=== PATIENT | female | born 1975 | race Caucasian/White ===

== ENCOUNTER → 2017-07-21 15:51 | Outpatient (CLI) | payer BC, SELFPAY ==
--- NOTE | 2017-07-21 | FLU_PTH ---
PATIENT: JAYNE DOCKERY LOC: [facility] U#:[id number] AGE/SX: 49/F ROOM: RE07/21/[address]: Dr. Kvng Bui MD : 1975 BED: DIS: SPEC #: [id number] RECD: 07/22/17 13:06 STATUS: ASHLYN DAVID #: [id number] SHERLEY: 07/21/17 00:[address]: Kvng Bui DEPT: CYTOLOGY RECD BY: Gibson Flower ENTERED: 07/22/17 13:07 SP TYPE: Fluid OTHR DR: Dr. Kerrie Castellon, DO Tissues: A - Thyroid gland, NOS B - Thyroid gland, NOS Procedures: Pap Stain (control) Special Stain Group II Surgery Specimen Level IV Cell Block Cytospin Fluid HEADER OPERATION: Ultrasound-guided fine needle aspiration left thyroid PRE-OP DIAGNOSIS: Multinodular goiter TISSUE SUBMITTED: A ? Left thyroid nodule fluid for cytology (syringe), B ? Fine needle aspiration left thyroid (8 slides) DIAGNOSIS CYTOLOGY A. Left thyroid nodule fluid for cytology (cytospin and cell block): Negative for malignant cells. Consistent with cyst contents. B. Left thyroid nodule, FNA (smears): Consistent with benign cystic follicular nodule. See cytology study and comment. AM:rasheed 07/25/17 COMMENT Correlation with clinical, radiologic findings and appropriate follow up are necessary. CYTOLOGY STUDY Slides are reviewed. A. The specimen entirely consists of macrophages. B. The specimen is adequate for evaluation. The specimen consists of numerous macrophages and benign follicular cells. Significant amount of colloid is not seen. CYTOLOGY GROSS A - Received is 0.5 ml of red, cloudy fluid labeled with the patient's name and and designated per the requisition as left thyroid. Submitted for cytology preparation including cell block. B - Received are eight smears labeled with the patient's name and designated per the requisition as left thyroid. Submitted for staining. / 07/22/17 TC:5 CPT: 60216, 79881, 48688
== END ==
PROVIDERS: Family Provider Internal Medicine; PCP Internal Medicine; Visit Provider Surgery
DX: E04.2 Nontoxic multinodular goiter (principal)
CPT/HCPCS: 88108; 88305; 88313

== ENCOUNTER → 2018-05-12 13:16 | Outpatient (CLI) | payer BC, SELFPAY ==
--- NOTE | 2018-05-12 13:30 | US_ITS ---
STUDY: THYROID ULTRASOUND REASON FOR EXAM: Female, 42 years old. Nodule follow-up, previous biopsy in October 2017 TECHNIQUE: Ultrasound evaluation of the thyroid was performed with real-time and static ortega-scale imaging. COMPARISON: 05/02/2017 FINDINGS: RIGHT LOBE: The right lobe of the thyroid gland measures 4.7 x 2.2 x 1.7 cm. There is a homogeneous echotexture. 3 hypoechoic nodules of the right thyroid lobe with the largest measuring up to 9 mm, stable when directly compared to the prior study. No new or enlarging thyroid nodule. LEFT LOBE: The left lobe of the thyroid gland measures 4.6 x 1.6 x 1.4 cm. There is a homogeneous echotexture. Solitary nodule of the left thyroid lobe has decreased in size since the prior study with maximum diameter measuring up to 1.1 cm (previously measured up to 1.6 cm). ISTHMUS: The isthmus measures 4 mm. The regional lymph nodes are normal. US/Thyroid IMPRESSION: Stable right thyroid nodules. Decreased size of left thyroid lobe nodule. No new or enlarging thyroid nodule. Electronically Signed: Rj Chris MD at 10:21 EST , Service support ,
== END ==
PROVIDERS: Family Provider Internal Medicine; PCP Internal Medicine; Referring Provider Internal Medicine; Visit Provider Internal Medicine
DX: E04.1 Nontoxic single thyroid nodule (principal)
CPT/HCPCS: 76536

== ENCOUNTER → 2018-06-15 17:30 | Outpatient (CLI) | payer BC, SELFPAY ==
[2017-07-05 10:10] VITALS: BMI 41.5
--- NOTE | 2018-06-15 17:07 | BI_ITS ---
MAMMOGRAPHY - BILATERAL SCREENING REASON FOR EXAM: Female, 42 years old. Routine annual screening examination. PERTINENT HISTORY: Aunt with breast cancer. TECHNIQUE: Digital bilateral breast kwesi (3D mammographic acquisition) in the CC and MLO projections. 2-D mediolateral oblique (MLO) and craniocaudad (CC) views of both breasts were obtained. CAD: Full Field Digital Mammography with Computer Added Detection was performed. COMPARISON: Comparison is made with prior study dated May 02, 2017. FINDINGS: Breast Composition: The breasts are almost entirely fatty. There are no dominant masses or suspicious calcifications. Stable appearance of the small bilateral axillary lymph nodes. No other significant abnormalities are identified. There has been no significant change since the prior study. BI/SCREENING MAMM (CAD), BILAT IMPRESSION: Stable bilateral screening mammogram. Yearly follow-up mammogram recommended. (A) ASSESSMENT CATEGORY: BIRADS Category 2: Benign. A letter regarding these results will be sent to the patient by the facility within 30 days. Approximately 10% of breast cancers are not detected by mammography. A normal mammogram should not delay biopsy of a clinically suspicious abnormality. [id number] Electronically Signed: Ken Santa, at 8:43 EST , Service support ,
== END ==
PROVIDERS: Family Provider Internal Medicine; PCP Internal Medicine; Referring Provider Internal Medicine; Visit Provider Internal Medicine
DX: Z12.31 Encounter for screening mammogram for malignant neoplasm of breast (principal); Z80.3 Family history of malignant neoplasm of breast
CPT/HCPCS: 77063; 77067

== ENCOUNTER → 2018-06-23 09:10 | Outpatient (CLI) | payer BC, SELFPAY ==
--- NOTE | 2018-06-23 09:18 | RAD_ITS ---
STUDY: AIR-CONTRAST ESOPHAGRAM STUDY REASON FOR EXAM: Female, 42 years old. Vomiting FLUOROSCOPY TIME (if supplied): (0:24) minutes/seconds, 10 images. TECHNIQUE: Multiple barium swallows were performed under fluoroscopic monitoring. Multiple views of the esophagus, the upper stomach were performed. COMPARISON: None. FINDINGS: The esophagus appears normal in size and shape it shows unremarkable mucosal pattern. There is no evidence of hiatal hernia or abnormal vascular compression. RAD/Esophagus Only IMPRESSION: Unremarkable study. Electronically Signed: Mona Griffin, at 9:55 EDT Tel , Service support ,
== END ==
PROVIDERS: Family Provider Internal Medicine; PCP Internal Medicine; Referring Provider Internal Medicine; Visit Provider Internal Medicine
DX: K21.9 Gastro-esophageal reflux disease without esophagitis (principal)
CPT/HCPCS: 74220

== ENCOUNTER → 2018-07-06 14:46 | Outpatient (CLI) | payer BC, SELFPAY ==
[2018-07-11 13:06] LABS: HPV Reflexed? NOT INDICATED
== END ==
PROVIDERS: Family Provider Internal Medicine; PCP Internal Medicine; Visit Provider Obstetrics & Gynecology
DX: Z12.4 Encounter for screening for malignant neoplasm of cervix (principal)
CPT/HCPCS: 87624; 88175; G0145

== ENCOUNTER → 2018-07-17 08:00 | Outpatient (CLI) | payer BC, SELFPAY ==
--- NOTE | 2018-07-17 08:06 | CT_ITS ---
HISTORY: EPIGASTRIC PAIN/PRESSURE X6 [id number] X2,LAPROSCOPY EXAMINATION: CT Abdomen W/ Contrast TECHNIQUE: Helically acquired images were obtained of the abdomen following IV contrast. A radiation dose optimization technique was used for this scan. IV Contrast dosage and agent: 100CC Isovue 300 Oral contrast: None. COMPARISON: None FINDINGS: LOWER CHEST: Incidental mild linear atelectasis right middle lobe. No cardiomegaly or pericardial effusion observed. LIVER: Homogeneous. No focal mass. GALLBLADDER AND BILIARY TREE: No calcified gallstones. Gallbladder mildly distended. No adjacent edema. No intra- or extrahepatic biliary ductal dilation. KIDNEYS AND URETERS: Normal renal size and position. There is no hydronephrosis. ADRENAL GLANDS: Non-enlarged. SPLEEN: Normal size without focal cystic or solid mass. PANCREAS: No focal cystic or solid mass. BOWEL: No stomach or bowel distension. No focal inflammatory change observed. LYMPH NODES: No enlarged mesenteric or retroperitoneal lymph nodes. PERITONEUM: No ascites or free air. No other fluid collection. VESSELS: Aorta is non-dilated. ABDOMINAL WALL: No discrete abdominal or pelvic wall hernia observed. BONES: No lytic or blastic abnormality observed. Facet degeneration lower lumbar spine. CT/Abdomen WITH IV Contrast IMPRESSION: Negative CT abdomen with IV contrast. Individualized dose optimization techniques were used for this CT. at 0407 Reported and signed by: Bertin Schultz MD Electronically Signed: Bertin Schultz, at 4:00 EDT Tel , Service support ,
== END ==
PROVIDERS: Family Provider Internal Medicine; PCP Internal Medicine; Referring Provider Internal Medicine; Visit Provider Internal Medicine
DX: R10.13 Epigastric pain (principal)
CPT/HCPCS: 74160; Q9967

== ENCOUNTER 2019-02-19 08:57 | Emergency (ER) | payer BC, SELFPAY ==
[2019-02-19 08:58] VITALS: BP 143/97; PULSE 130; RESP 18; TEMP 38.6; O2SAT 98; BMI 39.0
--- NOTE | 2019-02-19 09:17 | ED.VISSUMM ---
- ER Visit Summary Date of Service: 02/19/19 Chief Complaint: Cough, cold-like symptoms History of Present Illness: The patient is a 43 F who has had a cough and cold-like symptoms. She states that last night around 10 PM she started getting worse. She felt like she had a temperature. She has nasal congestion. Her cough is nonproductive. She took nothing for this at home. She did get a flu shot this year. No sick contacts. Physical Examination: Vital signs are reviewed. HEENT exam reveals mild sinus congestion. No posterior oropharyngeal erythema. Neck is supple. Heart is tachycardic and regular rhythm. Lungs are clear to auscultation bilaterally. Abdomen soft nontender. Extremities are nontender. Skin exam reveals no rashes. Neurologic exam normal. Test Results: Influenza negative. Chest x-ray has a right lower lobe infiltrate Emergency Department Course and Treatment: Patient was given an offer her fever. X-ray reveals no pneumonia. Influenza testing negative. Patient will be treated with antibiotics. She will continue NSAIDs at home. Treatment Plan: [] Disposition: Discharge Impression: Community-acquired pneumonia This note was generated with [employer] dictation software. It may contain incorrect words, spelling, and punctuation that were not noted in review of the chart prior to signing ED Disposition - Plan for ED Patient: Referrals: Kerrie Castellon DO [Primary Care Provider] -
[2019-02-19] MEDS: Acetaminophen 500 MG Tablet 1000 MG PO (09:21)
--- NOTE | 2019-02-19 09:53 | RAD_ITS ---
STUDY: X-RAY CHEST REASON FOR EXAM: Female, 43 years old. Cough and chest pain. TECHNIQUE: PA and lateral views of the chest. COMPARISON: None. FINDINGS: Focal consolidation in the anterior segment of the right lower lobe. There is no demonstrated pleural abnormality. Normal size heart. Normal mediastinum and opal. Normal visualized pulmonary arteries. Normal visualized aortic arch and descending thoracic aorta. There are degenerative changes of the visualized thoracic spine. Normal visualized ribs, clavicles, and shoulders. There is no demonstrated abnormality of the visualized soft tissue structures of the upper abdomen. RAD/Chest PA and Lateral IMPRESSION: Focal consolidation in the anterior segment of the right lower lobe. Electronically Signed: Ken Santa, at 10:48 EST , Service support ,
--- NOTE | 2019-02-19 10:56 | ED.DEP ---
ED Disposition - Plan for ED Patient: Disposition: Home or Assisted Living Instructions: PNEUMONIA (Adult) Prescriptions: Doxycycline 100 mg PO BID #20 cap Prescription Printed Referrals: Kerire Castellon DO [Primary Care Provider] -
[2019-02-19 11:00] VITALS: BP 125/74; PULSE 62; RESP 15; O2SAT 98
== END 2019-02-19 11:02 | disposition home or self-care (01) ==
PROVIDERS: Emergency Provider Emergency Medicine; Family Provider Internal Medicine; PCP Internal Medicine
DX: J18.9 Pneumonia, unspecified organism (principal); I10 Essential (primary) hypertension; Z79.899 Other long term (current) drug therapy
CPT/HCPCS: 71046; 87804; 99283

== ENCOUNTER → 2019-04-09 09:32 | Outpatient (CLI) | payer BC, SELFPAY ==
--- NOTE | 2019-04-09 09:37 | RAD_ITS ---
HISTORY: FOLLOW UP TO PREV PNEUMONIA ADDITIONAL HISTORY: None provided. COMPARISON: 02/19/2019 TECHNIQUE: Frontal and lateral chest radiographs. Number of images including paperwork: 2 FINDINGS: LUNGS AND PLEURA: No consolidation, mass or pleural effusion. Consolidation in the right lower lobe has resolved. CARDIAC SILHOUETTE: Unremarkable. MEDIASTINUM AND SAVANNA: Unremarkable. UPPER ABDOMEN: Unremarkable. SKELETON AND SOFT TISSUES: No acute findings. OTHER DEVICES AND HARDWARE: None. RAD/Chest PA and Lateral IMPRESSION: No acute cardiopulmonary abnormality. Resolution of right lower lobe pneumonia. at 0004 Reported and signed by: Hannah Frazier MD Electronically Signed: Hannah Frazier MD at 0:04 EST Tel , Service support ,
== END ==
PROVIDERS: Family Provider Internal Medicine; PCP Internal Medicine; Referring Provider Internal Medicine; Visit Provider Internal Medicine
DX: J18.9 Pneumonia, unspecified organism (principal)
CPT/HCPCS: 71046

== ENCOUNTER → 2019-05-10 09:16 | Outpatient (CLI) | payer BC, SELFPAY ==
[2019-05-10 10:01] LABS: Absolute Lymphocyte Count 2.14 X10^3/uL (0.83-4.51); Absolute Neutrophil Count 2.5 X10^3/uL (2.0-7.7); Basophil# 0.05 X10^3/uL; Eosinophil# 0.13 X10^3/uL; Eosinophils% 2.5 % (0-5); Hemoglobin 13.8 g/dL (12.0-15.0); Lymphocyte # 2.14 X10^3/ul (4.0); Lymphocyte % 41.5 % (19-41); Mean Corp Hgb Conc 32.1 g/dL (32-36); Mean Corpuscular Hgb 27.4 pg (27.0-32.0); Mean Corpuscular Volume 85.5 fL (81-99); Mean Platelet Vol. 8.7 fl (6.2-12.0); Monocyte# 0.35 X10^3/uL; Monocyte% 6.8 % (0-10); NRBC Flagged by Analyzer 0 % (0-5); Neutrophil # 2.48 X10^3/uL (2.7-7.7); Platelet Count 394 K/mm3 (150-450); RBC Distribution Width SD 40.3 fl (35.1-43.9); Red Blood Count 5.03 M/mm3 (4.2-5.4); White Blood Count 5.2 K/mm3 (4.4-11.0)
[2019-05-10 10:21] LABS: Hemoglobin A1c 5.9 % (4.2-6.3)
[2019-05-10 10:29] LABS: Microalbumin,Random Urine 23.2 mg/L (NO RANGE EST.); Microalbumin:Creatinine Ratio 7.7 mg/g CRE (<30 mg/g CRE)
[2019-05-10 10:44] LABS: ALB/GLOB Ratio 1.1 RATIO (0.9-2.4); AST(SGOT) 18 U/L (15-37); Alanine Aminotransfer ALT/SGPT 27 U/L (13-56); Albumin, Serum 3.9 g/dL (3.2-5.0); Alkaline Phosphatase 76 U/L (45-117); Anion Gap 3 (5-15); BUN 13 mg/dL (7-18); BUN/Creat Ratio 14.8 RATIO (10-20); Calcium,Total 8.7 mg/dL (8.5-10.1); Chloride 106 mmol/L (98-107); Cholesterol 199 mg/dL (200); Creatinine, Serum 0.88 mg/dL (0.55-1.02); EST Glomerular Filtration Rate 75 mL/min (>60); Est Glom Filt Rate - Afr Amer 90 mL/min (>60); Globulin 3.5 g/dL (2.2-4.2); Glucose 93 mg/dL (74-106); High Density Lipoprotein 47 mg/dL; Protein, Total 7.4 g/dL (6.4-8.2); Sodium Level 138 mmol/L (136-145); Triglycerides 155 mg/dL; Very Low Density Lipoprotein 31 mg/dL (5-40)
[2019-05-10 11:25] LABS: Vitamin D,25 Hydroxy 37.6 ng/mL (29.95-100.01)
== END ==
PROVIDERS: PCP Internal Medicine; Referring Provider Internal Medicine; Visit Provider Internal Medicine
DX: I15.0 Renovascular hypertension (principal); R73.01 Impaired fasting glucose; E55.9 Vitamin D deficiency, unspecified
CPT/HCPCS: 36415; 80053; 80061; 82043; 82306; 82570; 83036; 85025

== ENCOUNTER → 2019-06-15 20:04 | Outpatient (CLI) | payer BC, SELFPAY ==
[2019-05-18 08:03] VITALS: BMI 34.9
== END ==
LOC: SL 20:04
PROVIDERS: PCP Internal Medicine; Referring Provider Internal Medicine; Visit Provider Internal Medicine
DX: G47.10 Hypersomnia, unspecified (principal)
CPT/HCPCS: 95810

== ENCOUNTER → 2019-06-21 08:46 | Outpatient (CLI) | payer BC, SELFPAY ==
[2019-05-18 08:03] VITALS: BMI 34.9
--- NOTE | 2019-06-21 08:47 | BI_ITS ---
MAMMOGRAPHY - BILATERAL SCREENING REASON FOR EXAM: Female, 43 years old. Routine annual screening examination. PERTINENT HISTORY: Aunt with breast cancer. TECHNIQUE: Digital bilateral breast jose g (3D mammographic acquisition) in the CC and MLO projections. 2-D mediolateral oblique (MLO) and craniocaudad (CC) views of both breasts were obtained. CAD: Full Field Digital Mammography with Computer Added Detection was performed. COMPARISON: Comparison is made with prior examination June 15, 2018 and May 02, 2017. FINDINGS: Breast Composition: The breasts are almost entirely fatty. There are no dominant masses or suspicious calcifications. No other significant abnormalities are identified. There has been no significant change since the prior study. BI/SCREEN MAMM (CAD) W/JOSE G BILAT IMPRESSION: Stable bilateral screening mammogram. Yearly follow-up mammogram recommended. (A) ASSESSMENT CATEGORY: BIRADS Category 1: Negative. A letter regarding these results will be sent to the patient by the facility within 30 days. Approximately 10% of breast cancers are not detected by mammography. A normal mammogram should not delay biopsy of a clinically suspicious abnormality. [id number] Electronically Signed: Ken Santa, at 9:56 EDT , Service support ,
== END ==
PROVIDERS: PCP Internal Medicine; Referring Provider Internal Medicine; Visit Provider Internal Medicine
DX: Z12.31 Encounter for screening mammogram for malignant neoplasm of breast (principal)
CPT/HCPCS: 77063; 77067

== ENCOUNTER → 2020-07-18 14:22 | Outpatient (CLI) | payer OTHER, SELFPAY ==
[2020-07-18 13:43] VITALS: BMI 39.4
[2020-07-18 15:15] LABS: Absolute Lymphocyte Count 2.68 X10^3/uL (0.83-4.51); Basophil# 0.05 X10^3/uL; Basophil% 0.7 % (0-1); Eosinophil# 0.16 X10^3/uL; Eosinophils% 2.1 % (0-5); Hematocrit 40.8 % (37-47); Hemoglobin 13.4 g/dL (12.0-15.0); Lymphocyte # 2.68 X10^3/ul (4.0); Lymphocyte % 35.7 % (19-41); Mean Corp Hgb Conc 32.8 g/dL (32-36); Mean Corpuscular Hgb 28.2 pg (27.0-32.0); Mean Corpuscular Volume 85.7 fL (81-99); Mean Platelet Vol. 8.6 fl (6.2-12.0); Monocyte# 0.58 X10^3/uL; Monocyte% 7.7 % (0-10); NRBC Flagged by Analyzer 0 % (0-5); Neutrophil # 4.02 X10^3/uL (2.7-7.7); Neutrophil % 53.5 % (47-70); Platelet Count 400 K/mm3 (150-450); RBC Distribution Width SD 40.1 fl (35.1-43.9); Red Blood Count 4.76 M/mm3 (4.2-5.4); White Blood Count 7.5 K/mm3 (4.4-11.0)
[2020-07-18 16:09] LABS: Hemoglobin A1c 5.2 % (3.8-5.6)
[2020-07-18 16:19] LABS: ALB/GLOB Ratio 1.1 RATIO (0.9-2.4); AST(SGOT) 26 U/L (15-37); Alanine Aminotransfer ALT/SGPT 29 U/L (13-56); Albumin, Serum 3.9 g/dL (3.2-5.0); Alkaline Phosphatase 94 U/L (45-117); Anion Gap 6 (5-15); BUN 13 mg/dL (7-18); BUN/Creat Ratio 14.5 RATIO (10-20); Calcium,Total 9.3 mg/dL (8.5-10.1); Chloride 103 mmol/L (98-107); Cholesterol 223 mg/dL (200); EST Glomerular Filtration Rate 73 mL/min (>60); Est Glom Filt Rate - Afr Amer 88 mL/min (>60); Globulin 3.7 g/dL (2.2-4.2); Glucose 93 mg/dL (74-106); High Density Lipoprotein 51 mg/dL; Potassium 3.9 mmol/L (3.5-5.1); Protein, Total 7.6 g/dL (6.4-8.2); Sodium Level 136 mmol/L (136-145); Triglycerides 197 mg/dL; Very Low Density Lipoprotein 39 mg/dL (5-40)
== END ==
PROVIDERS: PCP Internal Medicine; Referring Provider Internal Medicine; Visit Provider Internal Medicine
DX: I10 Essential (primary) hypertension (principal); R73.03 Prediabetes
CPT/HCPCS: 36415; 80053; 80061; 83036; 85025

== ENCOUNTER → 2020-09-04 10:03 | Outpatient (CLI) | payer OTHER, SELFPAY ==
[2020-07-18 13:43] VITALS: BMI 39.4
--- NOTE | 2020-09-04 10:05 | BI_ITS ---
MAMMOGRAPHY - BILATERAL SCREENING REASON FOR EXAM: Female, 44 years old. Routine annual screening examination. PERTINENT HISTORY: Aunt with breast cancer. TECHNIQUE: Digital bilateral breast jose g (3D mammographic acquisition) in the CC and MLO projections. 2-D mediolateral oblique (MLO) and craniocaudad (CC) views of both breasts were obtained. CAD: Full Field Digital Mammography with Computer Added Detection was performed. COMPARISON: Comparison is made with prior study dated 06/21/2019 and 06/15/2018. FINDINGS: Breast Composition: The breasts are almost entirely fatty. There are no dominant masses or suspicious calcifications. Stable small benign appearing bilateral axillary lymph nodes. No other significant abnormalities are identified. There has been no significant change since the prior study. BI/SCRN MAMM (CAD)W/JOSE G BILAT IMPRESSION: Stable bilateral screening mammogram. Yearly follow-up mammogram recommended. (A) ASSESSMENT CATEGORY: BIRADS Category 2: Benign. A letter regarding these results will be sent to the patient by the facility within 30 days. Approximately 10% of breast cancers are not detected by mammography. A normal mammogram should not delay biopsy of a clinically suspicious abnormality. [id number] Electronically Signed: Ken Santa MD at 11:15 EDT , Service support ,
== END ==
PROVIDERS: PCP Internal Medicine; Referring Provider Internal Medicine; Visit Provider Internal Medicine
DX: Z12.31 Encounter for screening mammogram for malignant neoplasm of breast (principal)
CPT/HCPCS: 77063; 77067

== ENCOUNTER → 2020-09-16 | Outpatient (CLI) | payer OTHER, SELFPAY ==
[2020-09-16 09:29] VITALS: BMI 39.4
[2020-09-16 10:54] LABS: Mucous, Urine 0 SEEN /hpf (<or=2+); Red Blood Cells-Urine 0 SEEN /hpf (0-5); White Blood Cells 0 SEEN /hpf (0-5)
[2020-09-16 11:54] LABS: Color, Urine Straw (Yellow); Glucose, Dipstick Normal (Normal); Ketone-Dipstick Negative (Negative); Leukocyte Esterase-Dipstick Negative /ul (Negative); Nitrite-Dipstick Negative (Negative); Occult Blood-Urine Negative /ul (Negative); Protein-Dipstick Negative (Negative); Specific Gravity, Urine 1.005 (1.002-1.030); Urine Bilirubin Dipstick Negative (Negative); Urine Clarity Sl. Cloudy (Clear); Urine Urobilinogen Normal (Normal)
[2020-09-16 12:03] LABS: Bacteria 1+ /hpf (None Seen); Squamous Epithelial Cells - UA 0-5 SEEN /hpf (5-10)
== END | disposition home or self-care (01) ==
LOC: LABSPEC 10:35
PROVIDERS: PCP Internal Medicine; Referring Provider Internal Medicine; Visit Provider Internal Medicine
DX: N39.0 Urinary tract infection, site not specified (principal); R82.90 Unspecified abnormal findings in urine; R10.2 Pelvic and perineal pain
CPT/HCPCS: 81001; 87086; 87088

== ENCOUNTER → 2021-01-16 09:42 | Outpatient (CLI) | payer OTHER, SELFPAY ==
[2021-01-16 12:36] LABS: Hemoglobin A1c 5.4 % (3.8-5.6)
[2021-01-16 12:54] LABS: Anion Gap 7 (5-15); BUN 11 mg/dL (7-18); BUN/Creat Ratio 12.3 RATIO (10-20); Calcium,Total 9.1 mg/dL (8.5-10.1); Chloride 103 mmol/L (98-107); Creatinine, Serum 0.89 mg/dL (0.55-1.02); EST Glomerular Filtration Rate 73 mL/min (>60); Est Glom Filt Rate - Afr Amer 88 mL/min (>60); Glucose 103 mg/dL (74-106); Potassium 4.2 mmol/L (3.5-5.1); Sodium Level 136 mmol/L (136-145)
== END ==
PROVIDERS: PCP Internal Medicine; Referring Provider Internal Medicine; Visit Provider Internal Medicine
DX: I10 Essential (primary) hypertension (principal); R73.03 Prediabetes
CPT/HCPCS: 36415; 80048; 83036

== ENCOUNTER → 2021-03-27 08:28 | Outpatient (CLI) | payer OTHER, SELFPAY ==
[2021-03-27 12:15] LABS: Absolute Lymphocyte Count 1.98 X10^3/uL (0.83-4.51); Absolute Neutrophil Count 3.5 X10^3/uL (2.0-7.7); Basophil# 0.06 X10^3/uL; Eosinophils% 3.2 % (0-5); Hematocrit 42.6 % (37-47); Hemoglobin 13.9 g/dL (12.0-15.0); Lymphocyte # 1.98 X10^3/ul (0.83-4.51); Lymphocyte % 31.7 % (19-41); Mean Corp Hgb Conc 32.6 g/dL (32-36); Mean Corpuscular Hgb 27.9 pg (27.0-32.0); Mean Corpuscular Volume 85.4 fL (81-99); Mean Platelet Vol. 8.6 fl (6.2-12.0); Monocyte# 0.44 X10^3/uL; Monocyte% 7.1 % (0-10); NRBC Flagged by Analyzer 0 % (0-5); Neutrophil # 3.54 X10^3/uL (2.7-7.7); Neutrophil % 56.7 % (47-70); Platelet Count 425 K/mm3 (150-450); RBC Distribution Width CV 12.9 % (11.6-14.6); Red Blood Count 4.99 M/mm3 (4.2-5.4); White Blood Count 6.2 K/mm3 (4.4-11.0)
[2021-03-27 13:00] LABS: ALB/GLOB Ratio 0.9 RATIO (0.9-2.4); AST(SGOT) 20 U/L (15-37); Alanine Aminotransfer ALT/SGPT 30 U/L (13-56); Albumin, Serum 3.7 g/dL (3.2-5.0); Alkaline Phosphatase 96 U/L (45-117); Anion Gap 8 (5-15); BUN 13 mg/dL (7-18); BUN/Creat Ratio 16.1 RATIO (10-20); Calcium,Total 9.2 mg/dL (8.5-10.1); Chloride 105 mmol/L (98-107); Creatinine, Serum 0.81 mg/dL (0.55-1.02); EST Glomerular Filtration Rate 82 mL/min (>60); Est Glom Filt Rate - Afr Amer 99 mL/min (>60); Globulin 3.9 g/dL (2.2-4.2); Glucose 109 mg/dL (74-106); Potassium 3.9 mmol/L (3.5-5.1); Protein, Total 7.6 g/dL (6.4-8.2); Sodium Level 138 mmol/L (136-145); T4 Free Direct 0.91 ng/dL (0.76-1.46); Thyroid Stim Hormone (TSH) 1.83 uIU/mL (0.358-3.74)
== END ==
PROVIDERS: PCP Internal Medicine; Visit Provider Internal Medicine
DX: K58.9 Irritable bowel syndrome, unspecified (principal)
CPT/HCPCS: 36415; 80053; 84439; 84443; 85025

== ENCOUNTER → 2021-03-27 12:20 | Outpatient (CLI) | payer OTHER, SELFPAY ==
--- NOTE | 2021-03-27 12:22 | EKG12_ITS ---
Test Reason : ROUTINE Blood Pressure : / mmHG Vent. Rate : 067 BPM Atrial Rate : 067 BPM P-R Int : 170 ms QRS Dur : 086 ms QT Int : 384 ms P-R-T Axes : 044 022 040 degrees QTc Int : 405 ms Normal sinus rhythm Normal ECG Confirmed by KENNETH POLK, RAQUEL ([id number]), online content editor AMERICA RICARDO ([id number]) on 03/30/2021 9:48:59 AM Referred By: Leonard Chanel Confirmed By:RAQUEL COOPER MD
== END ==
PROVIDERS: PCP Internal Medicine; Referring Provider Internal Medicine; Visit Provider Internal Medicine
DX: I10 Essential (primary) hypertension (principal); Z82.49 Family history of ischemic heart disease and other diseases of the circulatory system
CPT/HCPCS: 93005

== ENCOUNTER → 2021-04-08 | Outpatient (CLI) | payer OTHER, SELFPAY | END | disposition home or self-care (01) | LOC: LABSPEC 11:39 | PROVIDERS: PCP Internal Medicine; Referring Provider Physician Assistant; Visit Provider Physician Assistant | DX: U07.1 COVID-19 (principal) | CPT/HCPCS: 87635; U0005; U0003 ==

== ENCOUNTER 2021-04-10 14:47 | Outpatient (CLI) | payer OTHER, SELFPAY ==
[2021-04-10 14:59] VITALS: BMI 87.0
[2021-04-10 15:05] VITALS: BP 132/92; PULSE 79; RESP 16; TEMP 36.8; O2SAT 98; BMI 39.4
[2021-04-10] MEDS: 0.9% Saline Lock 10 ML Syringe IV (15:08)
[2021-04-10 15:31] VITALS: BP 133/92; PULSE 75; RESP 16; TEMP 37; O2SAT 98
[2021-04-10 16:17] VITALS: BP 137/86; PULSE 73; RESP 16; TEMP 36.6; O2SAT 99
== END 2021-04-10 16:31 | disposition home or self-care (01) ==
LOC: MS3OUT 14:48 → MS3 14:48
PROVIDERS: PCP Internal Medicine; Referring Provider Nurse Practitioner Acute Care; Visit Provider Nurse Practitioner Acute Care
DX: Z23 Encounter for immunization (principal); U07.1 COVID-19; I10 Essential (primary) hypertension
CPT/HCPCS: J7050; M0243; A4216; Q0244

== ENCOUNTER 2021-04-23 10:51 | Outpatient (CLI) | payer OTHER, SELFPAY ==
--- NOTE | 2021-04-24 14:28 | STRESSREP ---
Stress Test Report Date: 04/24/2021 Procedure: Exercise tolerance test Indications: Chest pain Consent: Per the patient Procedure: The patient exercised on a Buster protocol for 7 minutes and 31 seconds achieving a peak heart rate of 169 bpm (96% predicted maximal heart rate) with a peak blood pressure 158/82 mmHg and a peak MET capacity of approximately 10.1 MET's. The baseline ECG demonstrated normal sinus rhythm. The peak exercise ECG demonstrated no significant ischemic changes. [There were no cardiac dysrhythmias pretest, during exercise, or recovery]. The functional capacity was considered normal for age. The patient had no complaint of chest discomfort during exercise or recovery. The examination was discontinued secondary to shortness of breath. Impression: 1. Technically adequate (percent predicted maximal heart rate greater than 85%) exercise tolerance test 2. Stress test is negative for exercise-induced chest pain. 3. Stress test is negative for exercise-induced EKG changes of ischemia. 4. Functional capacity is normal for age This note was generated with [employer] software. It may contain incorrect words, spelling, and punctuation that were not noted in checking the note before signing.
== END 2021-04-23 23:59 | disposition short-term general hospital (02) ==
PROVIDERS: PCP Internal Medicine; Referring Provider Internal Medicine; Visit Provider Internal Medicine
DX: I10 Essential (primary) hypertension (principal); Z82.49 Family history of ischemic heart disease and other diseases of the circulatory system
CPT/HCPCS: 93017

== ENCOUNTER 2021-07-22 12:39 | Outpatient (CLI) | payer OTHER, SELFPAY ==
[2021-07-22 16:19] LABS: CRP < 2.90 mg/L (0.0-3.0)
[2021-07-24 17:10] LABS: Endomysial Antibody IgA Negative (Negative)
[2021-07-24 21:12] LABS: Immunoglobulin A 91 mg/dL (87-352); t-Transglutaminase IgA <2 U/mL (0-3)
== END 2021-07-22 23:59 | disposition home or self-care (01) ==
LOC: MTLAB 12:41
PROVIDERS: PCP Internal Medicine; Referring Provider Internal Medicine Gastroenterology; Visit Provider Internal Medicine Gastroenterology
DX: R19.7 Diarrhea, unspecified (principal)
CPT/HCPCS: 36415; 82784; 83516; 86140; 86255

== ENCOUNTER → 2022-08-05 | Outpatient (CLI) | payer OTHER, SELFPAY ==
[2022-08-05 12:22] LABS: Absolute Lymphocyte Count 2.08 X10^3/uL (0.83-4.51); Absolute Neutrophil Count 3.8 X10^3/uL (2.0-7.7); Basophil# 0.07 X10^3/uL; Basophil% 1.1 % (0-1); Eosinophil# 0.12 X10^3/uL; Eosinophils% 1.8 % (0-5); Hematocrit 42.2 % (37-47); Hemoglobin 13.4 g/dL (12.0-15.0); Lymphocyte # 2.08 X10^3/ul (0.83-4.51); Lymphocyte % 31.7 % (19-41); Mean Corp Hgb Conc 31.8 g/dL (32-36); Mean Corpuscular Hgb 27.7 pg (27.0-32.0); Mean Corpuscular Volume 87.2 fL (81-99); Mean Platelet Vol. 8.7 fl (6.2-12.0); Monocyte# 0.52 X10^3/uL; Monocyte% 7.9 % (0-10); NRBC Flagged by Analyzer 0 % (0-5); Neutrophil # 3.75 X10^3/uL (2.7-7.7); Neutrophil % 57.2 % (47-70); Platelet Count 439 K/mm3 (150-450); RBC Distribution Width SD 40.9 fl (35.1-43.9); Red Blood Count 4.84 M/mm3 (4.2-5.4); White Blood Count 6.6 K/mm3 (4.4-11.0)
[2022-08-05 12:53] LABS: Vitamin D,25 Hydroxy 53.9 ng/mL
[2022-08-05 12:57] LABS: ALB/GLOB Ratio 1.1 RATIO (0.9-2.4); AST(SGOT) 24 U/L (15-37); Alanine Aminotransfer ALT/SGPT 42 U/L (13-56); Albumin, Serum 3.8 g/dL (3.2-5.0); Alkaline Phosphatase 80 U/L (45-117); Anion Gap 2 (5-15); BUN 11 mg/dL (7-18); BUN/Creat Ratio 13.7 RATIO (10-20); Calcium,Total 8.6 mg/dL (8.5-10.1); Chloride 104 mmol/L (98-107); Cholesterol 191 mg/dL (200); EST Glomerular Filtration Rate 82 mL/min (>60); Est Glom Filt Rate - Afr Amer 99 mL/min (>60); Globulin 3.5 g/dL (2.2-4.2); Glucose 101 mg/dL (74-106); High Density Lipoprotein 45 mg/dL; Potassium 3.8 mmol/L (3.5-5.1); Protein, Total 7.3 g/dL (6.4-8.2); Sodium Level 135 mmol/L (136-145); Triglycerides 153 mg/dL; Very Low Density Lipoprotein 31 mg/dL (5-40)
[2022-08-05 13:10] LABS: Hemoglobin A1c 5.3 % (3.8-5.6)
== END | disposition home or self-care (01) ==
PROVIDERS: PCP Internal Medicine; Referring Provider Nurse Practitioner Family; Visit Provider Nurse Practitioner Family
DX: I10 Essential (primary) hypertension (principal); R73.03 Prediabetes; R07.9 Chest pain, unspecified; E78.2 Mixed hyperlipidemia; E55.9 Vitamin D deficiency, unspecified
CPT/HCPCS: 36415; 80053; 80061; 82306; 83036; 84443; 85025

== ENCOUNTER → 2023-03-10 | Outpatient (CLI) | payer OTHER, SELFPAY ==
--- NOTE | 2023-03-10 14:24 | US_ITS ---
STUDY: THYROID ULTRASOUND REASON FOR EXAM: Female, 47 years old. Thyroid nodules. Thyromegaly. TECHNIQUE: Ultrasound evaluation of the thyroid was performed with real-time and static ortega-scale imaging. COMPARISON: Comparison is made with prior study dated May 12, 2018. FINDINGS: RIGHT LOBE: The right lobe of the thyroid gland is enlarged and measures 5.4 cm x 1.8 cm x 1.6 cm. There is a homogeneous echotexture. 4 well-defined hypoechoic solid nodules are seen. The largest is in the upper pole and measures 1.3 cm x 1.1 cm x 0.7 cm. This most likely represents an adenoma. Ultrasound is recommended. LEFT LOBE: The left lobe of the thyroid gland measures 4.4 cm x 1.6 cm x 1.4 cm. There is a homogeneous echotexture. 3 hypoechoic solid nodules are seen. The largest measures 8 mm x 6 mm x 5 mm. This is essentially unchanged. ISTHMUS: The isthmus measures 2 mm. The regional lymph nodes are normal. US/Thyroid IMPRESSION: Enlarged right lobe of the thyroid. Dominant hypoechoic solid nodule in the upper pole of the right lobe measuring 1.3 cm x 1.1cm x 0 .7 cm. This has increased in size as compared to prior study. Biopsy is recommended. Electronically Signed: Ken Santa MD at 10:36 EST ,
--- NOTE | 2023-03-10 14:53 | BI_ITS ---
MAMMOGRAPHY - BILATERAL SCREENING REASON FOR EXAM: Female, 47 years old. Routine annual screening examination. PERTINENT HISTORY: Aunt with breast cancer. TECHNIQUE: Digital bilateral breast jose g (3D mammographic acquisition) in the CC and MLO projections. 2-D mediolateral oblique (MLO) and craniocaudad (CC) views of both breasts were obtained. CAD: Full Field Digital Mammography with Computer Added Detection was performed. COMPARISON: Comparison is made with prior study September 04, 2020 and June 21, 2019 FINDINGS: Breast Composition: The breasts are almost entirely fatty. There are no dominant masses or suspicious calcifications. No other significant abnormalities are identified. There has been no significant change since the prior study. BI/SCRN MAMM (CAD)W/JOSE G BILAT IMPRESSION: Stable bilateral screening mammogram. Yearly follow-up mammogram recommended. (A) ASSESSMENT CATEGORY: BIRADS Category 1: Negative. A letter regarding these results will be sent to the patient by the facility within 30 days. Approximately 10% of breast cancers are not detected by mammography. A normal mammogram should not delay biopsy of a clinically suspicious abnormality. [id number] Electronically Signed: Ken Santa MD at 8:27 EST ,
== END | disposition home or self-care (01) ==
LOC: US 14:23
PROVIDERS: PCP Internal Medicine; Referring Provider Internal Medicine; Visit Provider Internal Medicine
DX: Z12.31 Encounter for screening mammogram for malignant neoplasm of breast (principal); E01.0 Iodine-deficiency related diffuse (endemic) goiter
CPT/HCPCS: 76536; 77063; 77067

== ENCOUNTER → 2023-03-31 | Outpatient (CLI) | payer OTHER, SELFPAY ==
--- NOTE | 2023-03-31 15:00 | FLU_PTH ---
PATIENT: JAYNE DOCKERY LOC: [facility] U#:[id number] AGE/SX: 47/F ROOM: RE03/31/[address]: Dr. Hansel Torres MD : 1975 BED: DIS: 03/31/2023 SPEC #: [id number] RECD: 04/01/23 10:08 STATUS: ASHLYN RESavanna #: [id number] SHERLEY: 03/31/23 15:[address]: Hansel Torres DEPT: CYTOLOGY RECD BY: Alicia Marquez ENTERED: 04/01/23 10:12 SP TYPE: Fluid OTHR DR: Dr. Leonard Chanel MD Tissues: A - Thyroid gland, NOS B - Thyroid gland, NOS Procedures: Special Stain Group II Surgery Specimen Level IV Cytospin Fluid Cytology Other HEADER OPERATION: Fine needle aspiration of right thyroid nodule PRE-OP DIAGNOSIS: Right thyroid nodule TISSUE SUBMITTED: A - Right thyroid nodule fluid, B - Right thyroid nodule x4 slides DIAGNOSIS CYTOLOGY A. Right thyroid nodule fluid, fine needle aspiration (cytospin and cell block): Acellular specimen. B. Right thyroid nodule, fine needle aspiration (smears): Consistent with benign follicular/colloid nodule ([place] Category II). Adequate for evaluation. See comment. SJ:rasheed 04/05/2023 COMMENT B. Correlation with clinical, radiologic findings and appropriate follow up are necessary. The [place] System for thyroid diagnostic categorization was used in the evaluation of this case. CYTOLOGY STUDY Slides are reviewed. CYTOLOGY GROSS A - Received is 40 ml of red cloudy fluid labeled with the patient's name and and designated per the requisition as right thyroid nodule. Submitted for cytology preparation including cell block. B - Received are four smears labeled with the patient's name and designated per the requisition as right thyroid nodule. Submitted for staining. / rasheed 04/01/2023 TC:5 CPT: 61850 x2, 04033
== END | disposition home or self-care (01) ==
LOC: LABSPEC 04-01 10:04
PROVIDERS: PCP Internal Medicine; Visit Provider Surgery
DX: E04.1 Nontoxic single thyroid nodule (principal)
CPT/HCPCS: 88108; 88161; 88305; 88313

== ENCOUNTER → 2023-05-20 | Outpatient (CLI) | payer OTHER, SELFPAY ==
[2023-05-20 12:10] LABS: Absolute Lymphocyte Count 1.87 X10^3/uL (0.83-4.51); Absolute Neutrophil Count 3.5 X10^3/uL (2.0-7.7); Basophil# 0.08 X10^3/uL; Basophil% 1.3 % (0-1); Eosinophil# 0.13 X10^3/uL; Eosinophils% 2.1 % (0-5); Hematocrit 42.3 % (37-47); Hemoglobin 13.7 g/dL (12.0-15.0); Lymphocyte # 1.87 X10^3/ul (0.83-4.51); Lymphocyte % 30.2 % (19-41); Mean Corp Hgb Conc 32.4 g/dL (32-36); Mean Corpuscular Hgb 27.6 pg (27.0-32.0); Mean Corpuscular Volume 85.3 fL (81-99); Mean Platelet Vol. 8.7 fl (6.2-12.0); Monocyte# 0.59 X10^3/uL; Monocyte% 9.5 % (0-10); NRBC Flagged by Analyzer 0 % (0-5); Neutrophil % 56.6 % (47-70); Platelet Count 403 K/mm3 (150-450); RBC Distribution Width CV 13.3 % (11.6-14.6); RBC Distribution Width SD 41.3 fl (35.1-43.9); Red Blood Count 4.96 M/mm3 (4.2-5.4); White Blood Count 6.2 K/mm3 (4.4-11.0)
[2023-05-20 12:45] LABS: ALB/GLOB Ratio 1.1 RATIO (0.9-2.4); AST(SGOT) 21 U/L (15-37); Alanine Aminotransfer ALT/SGPT 38 U/L (13-56); Alkaline Phosphatase 89 U/L (45-117); Anion Gap 6 (5-15); BUN 10 mg/dL (7-18); Chloride 106 mmol/L (98-107); Cholesterol 184 mg/dL (200); Creatinine, Serum 0.77 mg/dL (0.55-1.02); EST Glomerular Filtration Rate 86 mL/min (>60); Est Glom Filt Rate - Afr Amer 104 mL/min (>60); Globulin 3.5 g/dL (2.2-4.2); Glucose 106 mg/dL (74-106); High Density Lipoprotein 49 mg/dL; Magnesium 2.3 mg/dL (1.6-2.6); Potassium 3.8 mmol/L (3.5-5.1); Protein, Total 7.5 g/dL (6.4-8.2); Sodium Level 138 mmol/L (136-145); Triglycerides 139 mg/dL; Very Low Density Lipoprotein 28 mg/dL (5-40)
[2023-05-20 17:03] LABS: Hemoglobin A1c 5.6 % (3.8-5.6)
== END | disposition home or self-care (01) ==
LOC: BIMLAB 09:11
PROVIDERS: PCP Internal Medicine; Visit Provider Internal Medicine
DX: R73.03 Prediabetes (principal); I10 Essential (primary) hypertension
CPT/HCPCS: 36415; 80053; 80061; 83036; 83735; 85025

== ENCOUNTER → 2023-09-08 | Outpatient (CLI) | payer OTHER, SELFPAY ==
[2023-09-13 10:10] LABS: HPV APTIMA, High Risk Negative (Negative)
== END | disposition home or self-care (01) ==
LOC: LABSPEC 16:19
PROVIDERS: PCP Internal Medicine; Referring Provider Advanced Practice Midwife; Visit Provider Advanced Practice Midwife
DX: Z12.4 Encounter for screening for malignant neoplasm of cervix (principal)
CPT/HCPCS: 87624; 88175; G0145

== ENCOUNTER → 2024-03-16 | Outpatient (CLI) | payer OTHER, SELFPAY ==
--- NOTE | 2024-03-16 12:57 | US_ITS ---
STUDY: THYROID ULTRASOUND REASON FOR EXAM: Female, 48 years old. Surveillance of multiple thyroid nodules TECHNIQUE: Ultrasound evaluation of the thyroid was performed with real-time and static ortega-scale imaging. COMPARISON: 03/10/2023 FINDINGS: RIGHT LOBE: The right lobe of the thyroid gland measures 4.5 x 1.5 x 1.9 cm. There is a homogeneous echotexture. Nodule 1: No change from 11 x 7 x 10 mm cystic hypoechoic wider than tall smooth marginated nodule with no echogenic foci (TR 2) in the superior right lobe consistent with a colloid cyst. Nodule 2: No change in the 16 x 12 x 12 mm solid hypoechoic wider than tall ill-defined margin nodular no echogenic foci (TR 4) in the superior right lobe for which ultrasound-guided biopsy is recommended if never performed. LEFT LOBE: The left lobe of the thyroid gland measures 4.0 x 1.4 x 1.2 cm. There is a homogeneous echotexture. Nodule 3: No change in the 8 x 6 x 9 mm solid hypoechoic wider than tall ill-defined margin nodule with no echogenic foci (TR 4) inferior left lobe consistent with an adenoma. ISTHMUS: The isthmus measures 2 mm thick. . The regional lymph nodes are normal. US/Thyroid IMPRESSION: No change in multinodular fibroglandular with a dominant nodule in the right lobe for which ultrasound-guided biopsy is recommended if never performed. Follow-up ultrasound is recommended in 1 year. Electronically Signed: Thad Hugo MD at 9:19 EST ,
== END | disposition home or self-care (01) ==
LOC: US 12:56
PROVIDERS: PCP Internal Medicine; Referring Provider Surgery; Visit Provider Surgery
DX: E04.2 Nontoxic multinodular goiter (principal)
CPT/HCPCS: 76536

== ENCOUNTER → 2024-03-30 | Outpatient (CLI) | payer OTHER, SELFPAY ==
--- NOTE | 2024-03-30 06:55 | CT_ITS ---
STUDY: CT CHEST WITHOUT CONTRAST REASON FOR EXAM: Female, 48 years old. Family history of ischemic heart disease and other diseases -- OVER READ ONLY RADIATION DOSAGE (If Supplied By Facility): CTDIvol = ( 17.37 ) mGy, DLP = ( 347.40 ) mGycm TECHNIQUE: Transaxial imaging was performed without the administration of intravenous contrast material. Individualized dose optimization techniques were used for this CT. COMPARISON: No relevant priors. FINDINGS: CHEST The lungs are normal. There is no demonstrated pleural abnormality. Normal heart and pericardium. No coronary calcification is seen. Normal mediastinum. Normal hilar regions. Normal unenhanced pulmonary arteries. Normal aorta arch and descending thoracic aorta. Normal osseous structures. There is no demonstrated abnormality of the visualized upper abdomen. CT/Limited Chest CT Cardiac Only IMPRESSION: Normal unenhanced CT chest. Electronically Signed: Ken Santa MD at 9:17 [facility] ,
--- NOTE | 2024-03-30 07:56 | CA.SCORE ---
Calcium Scoring Date of Study:: 03/30/24 Indications Indications: FH Coronary Calcium Scoring: High-resolution Computed Tomographic imaging of the chest was performed on [03/30/24 ], with particular attention paid to the coronary arteries. Images from the examination were analyzed for the presence and extent of coronary artery calcification , using coronary calcium quantification software. The patient tolerated the procedure well and there were no complications. The results of the coronary calcification analysis are provided below. Findings Coronary Artery Left Main (LM): 0 Left Anterior Descending (LAD): 0 Left Circumflex (LCX): 0 Right Coronary Artery (RCA): 0 Total Agatston Score: 0 Percentile Rankin% Calcium Scoring Interpretation: Different methods to categorize the overall amount of coronary plaque. Overall amount CAC SIS Visual of coronary plaque P1 Mild -100 <2 1-2 vessels with mild amount of plaque P2 Moderate 101-300 3-4 1-2 vessels with moderate amount, 3 vessels with mild amount of plaque P3 Severe 301-999 5-7 3 vessels with moderate amount, 1 vessel with severe amount of plaque P4 Extensive >1000 >8 2-3 vessels with severe amount of plaque Conclusion: No atherosclerotic plaquing noted
== END | disposition home or self-care (01) ==
LOC: CT 06:54
PROVIDERS: PCP Internal Medicine; Referring Provider Internal Medicine; Visit Provider Internal Medicine
DX: I10 Essential (primary) hypertension (principal); E78.2 Mixed hyperlipidemia; Z82.49 Family history of ischemic heart disease and other diseases of the circulatory system
CPT/HCPCS: 75571; 76380

== ENCOUNTER → 2024-04-06 | Outpatient (CLI) | payer OTHER, SELFPAY ==
--- NOTE | 2024-04-06 08:32 | BI_ITS ---
MAMMOGRAPHY - BILATERAL SCREENING 3-D TOMOSYNTHESIS REASON FOR EXAM: Female, 48 years old. Breast Cancer Screening PERTINENT HISTORY: No significant family history. TECHNIQUE: 2-D mammograms and 3-D Tomosynthesis of the breast (s) were performed. CAD was performed. COMPARISON: 03/10/2023 FINDINGS: The breast composition is composed of scattered fibroglandular density. Scattered benign calcifications are seen. No dense spiculated masses or suspicious microcalcifications are identified. No architectural distortion is identified. There is no skin thickening or retraction. There has been no significant change since the prior study. BI/SCRN MAMM (CAD)W/JOSE G BILAT IMPRESSION: No mammographic signs of malignancy. Routine yearly mammograms recommended. ASSESSMENT CATEGORY: BIRADS Category 1: Negative. A letter regarding these results will be sent to the patient by the facility within 30 days. FOLLOW UP RECOMMENDATION: Yearly follow up mammogram recommended. (A) Approximately 10% of breast cancers are not detected by mammography. A normal mammogram should not delay biopsy of a clinically suspicious abnormality. Electronically Signed: Thad Hugo MD at 19:46 EST ,
== END | disposition home or self-care (01) ==
LOC: OPBI 08:31
PROVIDERS: PCP Internal Medicine; Referring Provider Internal Medicine; Visit Provider Internal Medicine
DX: Z12.31 Encounter for screening mammogram for malignant neoplasm of breast (principal)
CPT/HCPCS: 77063; 77067

== ENCOUNTER → 2024-07-19 | Outpatient (CLI) | payer OTHER, SELFPAY ==
[2024-07-19 12:47] LABS: Absolute Lymphocyte Count 2.24 X10^3/uL (0.83-4.51); Absolute Neutrophil Count 2.6 X10^3/uL (2.0-7.7); Basophil# 0.07 X10^3/uL; Basophil% 1.3 % (0-1); Eosinophil# 0.13 X10^3/uL; Eosinophils% 2.4 % (0-5); Hematocrit 42.5 % (37-47); Hemoglobin 13.8 g/dL (12.0-15.0); Lymphocyte # 2.24 X10^3/ul (0.83-4.51); Lymphocyte % 41.2 % (19-41); Mean Corp Hgb Conc 32.5 g/dL (32-36); Mean Corpuscular Hgb 27.8 pg (27.0-32.0); Mean Corpuscular Volume 85.5 fL (81-99); Mean Platelet Vol. 8.6 fl (6.2-12.0); Monocyte# 0.41 X10^3/uL; Monocyte% 7.5 % (0-10); NRBC Flagged by Analyzer 0 % (0-5); Neutrophil # 2.58 X10^3/uL (2.7-7.7); Neutrophil % 47.4 % (47-70); Platelet Count 440 K/mm3 (150-450); RBC Distribution Width CV 13.2 % (11.6-14.6); Red Blood Count 4.97 M/mm3 (4.2-5.4); White Blood Count 5.4 K/mm3 (4.4-11.0)
[2024-07-19 13:17] LABS: Hemoglobin A1c 5.9 % (<=5.6)
[2024-07-19 13:19] LABS: ALB/GLOB Ratio 1.5 RATIO (0.9-2.4); AST(SGOT) 25 U/L (<=31); Alanine Aminotransfer ALT/SGPT 24 U/L (<=34); Albumin, Serum 4.3 g/dL (3.5-5.0); Alkaline Phosphatase 95 U/L (35-104); Anion Gap 10 (5-15); BUN 12 mg/dL (4-19); BUN/Creat Ratio 15.4 RATIO (10-20); Calcium,Total 9.1 mg/dL (7.6-11.0); Carbon Dioxide 25.9 mmol/L (21.0-32.0); Chloride 102 mmol/L (98-108); Cholesterol 224 mg/dL (<=200); Creatinine, Serum 0.79 mg/dL (0.70-1.20); EST Glomerular Filtration Rate 93 (>60); Globulin 2.9 g/dL (2.2-4.2); Glucose 119 mg/dL (70-99); High Density Lipoprotein 49 mg/dL; Low Density Lipoprotein Calc. 137 mg/dL; Potassium 4.5 mmol/L (3.3-5.1); Protein, Total 7.2 g/dL (5.9-8.4); Sodium Level 138 mmol/L (133-145); Triglycerides 187 mg/dL; Very Low Density Lipoprotein 37 mg/dL (5-40); cholesterol:hdl ratio screen 4.55
== END | disposition home or self-care (01) ==
LOC: BIMLAB 09:08
PROVIDERS: PCP Internal Medicine; Referring Provider Internal Medicine; Visit Provider Internal Medicine
DX: I10 Essential (primary) hypertension (principal); R73.03 Prediabetes; E78.2 Mixed hyperlipidemia
CPT/HCPCS: 36415; 80053; 80061; 83036; 85025

== ENCOUNTER → 2024-10-03 | Outpatient (CLI) | payer OTHER, SELFPAY ==
--- NOTE | 2024-10-03 16:33 | RAD_ITS ---
PROCEDURE: CHEST PA AND LATERAL 10/03/2024 REASON FOR EXAM: COUGH TECHNIQUE: CHEST PA AND LATERAL COMPARISON: CT from 03/20/2024 FINDINGS: No focal consolidation. No pleural effusion or pneumothorax. Cardiac silhouette is within normal limits. No acute fractures. RAD/Chest PA and Lateral IMPRESSION: No focal consolidations. Reading Location: [id number]
== END | disposition home or self-care (01) ==
PROVIDERS: PCP Internal Medicine; Referring Provider Physician Assistant; Visit Provider Physician Assistant
DX: R05.9 Cough, unspecified (principal)
CPT/HCPCS: 71046

== ENCOUNTER 2025-01-08 23:22 | Observation (INO) | payer OTHER, SELFPAY ==
[2025-01-08 23:22] VITALS: BP 171/89; PULSE 75; RESP 18; TEMP 36.4; O2SAT 98; BMI 47.4
--- NOTE | 2025-01-08 23:33 | EKG12_ITS ---
Test Reason : DYSRHYTHMIA Blood Pressure : */* mmHG Vent. Rate : 68 BPM Atrial Rate : 68 BPM P-R Int : 186 ms QRS Dur : 90 ms QT Int : 400 ms P-R-T Axes : 38 2 24 degrees QTcB Int : 425 ms Normal sinus rhythm Normal ECG Confirmed by ALONDRA POLK, SAMRA ([id number]), scientific publications editor AMERICA RICARDO ([id number]) on 01/09/2025 8:24:44 AM Referred By: Confirmed By: SAMRA CANTU MD
--- NOTE | 2025-01-08 23:45 | RAD_ITS ---
PROCEDURE: CHEST 1 VIEW (PORTABLE) 01/08/2025 REASON FOR EXAM: CHEST PAIN TECHNIQUE: Frontal view of the chest. COMPARISON: 10/03/2024 FINDINGS: Lungs/Pleura: Clear. No pneumothorax or sizable pleural effusion. Heart/Mediastinum: Mildly enlarged. No vascular congestion. Bones/Soft tissues: No significant abnormality. RAD/Chest 1 View (Portable) IMPRESSION: Mild cardiomegaly. No acute pulmonary disease. Reading Location: [id number]
[2025-01-08 23:48] LABS: Hematocrit 40.9 % (37-47); Hemoglobin 13.4 g/dL (12.0-15.0); Immature Granulocytes Count 0.030 X10^3/uL (0.0-0.0); Mean Corp Hgb Conc 32.8 g/dL (32-36); Mean Corpuscular Volume 83.0 fL (81-99); Mean Platelet Vol. 8.3 fl (6.2-12.0); NRBC Flagged by Analyzer 0 % (0-5); Platelet Count 433 K/mm3 (150-450); RBC Distribution Width CV 13.4 % (11.6-14.6); RBC Distribution Width SD 40.4 fl (35.1-43.9); Red Blood Count 4.93 M/mm3 (4.2-5.4); White Blood Count 8.0 K/mm3 (4.4-11.0)
--- NOTE | 2025-01-08 23:49 | EX.ED.DYSGE1 ---
HPI <Dr. Bassam Robbins MD - Last Filed: 01/14/25 06:49> History of Present Illness Chief Complaint: Palpitations Detail of Chief Complaint: Bradycardia did not palpitations Informant: patient Onset/Context/Timing Onset: Today and Hours Context: Sudden Onset Timing: Intermittent Quality: Received alert from her smart watch. Made tracing of her heart Location: Cardiovascular Current Severity: Gone Maximum Severity: Mild Worsened by: Nothing Relieved by: Nothing Associated Symptoms Associated Symptoms: Slight epigastric discomfort and nausea Narrative Narrative: Patient is a 49-year-old woman. She has history of hypertension. She is on amlodipine and labetalol. Her doses have not been changed recently. While sitting she received an alarm from her smart watch. She did make a tracing. Patient had what appears to be second-degree heart block. Her rate is one half of what it presently is on the monitor. Patient denied lightheadedness. She denied chest pain, pressure tightness heaviness. Patient denies diaphoresis, dyspnea. She has no history of coronary artery disease. She does not see a sumatra opener. She sees mechanical systems designer at [facility]. She has history of obesity with a BMI of 47.4, obstructive sleep apnea, type 2 diabetes mellitus, hypertension, mixed hyperlipidemia and GERD. Patient denies any constitutional symptoms of fever, chills or night sweats. She denies weight gain or weight loss. She denies blurred vision, change in vision, double vision or loss of vision. She denies ringing or ears or decreased hearing. She denies trouble with speech or swallowing. She denies history of black or maroon-colored stool. She denies urologic symptoms. She denies neurologic symptoms. Prior similar symptoms: No Recent Illness/Hospitalization: No PFSH <Dr. Bassam Robbins MD - Last Filed: 01/14/25 06:49> FOR[facility]LY [facility] Medical History Anosmia Upper respiratory infection Family history of early CAD Obesity Migraine Health care maintenance Preventative health care Chest pain Family history of heart disease in male family member before age 55 IBS (irritable bowel syndrome) Change in bowel habit Abdominal pain Gastroenteritis UTI (urinary tract infection) Cloudy urine Suprapubic abdominal pain Back pain with sciatica PCOS (polycystic ovarian syndrome) Chronic headaches Thyromegaly Hypertension Dermatofibroma Thyroid nodule Vitamin D deficiency Mixed hyperlipidemia Anxiety Renal arterial hypertension Mitral regurgitation GERD without esophagitis Home Medications ?Medication ?Instructions ?Recorded ?Last Taken ?Type multivitamin 1 cap PO QDAY vitamin 07/05/17 01/08/25 History lactobacillus combination no.8 3 3,000 mmu cells PO DAILY PRN 05/08/19 Unknown History billion cell capsule (Adult probiotic Probiotic) cholecalciferol (vitamin D3) 10 10 mcg PO DAILY vitamin 09/16/23 01/08/25 History mcg (400 unit) capsule fluticasone propionate 50 2 spray intranasal DAILY PRN 04/26/24 Unknown History mcg/actuation nasal allergy symptoms spray,suspension biotin 10,000 mcg capsule 1 cap PO DAILY supplement 07/26/24 01/08/25 History citalopram 20 mg tablet See Rx Instructions .Route 09/19/24 01/08/25 Rx .COMPLEX mental health #90 tabs magnesium glycinate mg PO QDAY 11/29/24 01/08/25 History amlodipine 10 mg tablet (Norvasc) 10 mg PO DAILY #30 tabs 01/09/25 Unknown Rx losartan 50 mg tablet 50 mg PO QDAY #30 tabs 01/11/25 Unknown Rx Allergy/AdvReac Type Severity Reaction Status Date / Time lanolin Allergy Hives Verified 01/11/25 08:15 povidone-iodine (From Allergy Hives Verified 01/11/25 08:15 Betadine) soap (From Betadine) Allergy Hives Verified 01/11/25 08:15 lidocaine AdvReac Hives Verified 01/11/25 08:15 Family History Mother Hypertension High cholesterol Anemia Anxiety Arthritis Autoimmune disorder Parkinsons disease Father Heart disease Hypertension High cholesterol Diabetes Angina at rest Kidney disease CVA (cerebral vascular accident) Grandfather Colon cancer Diabetes Myocardial infarction Heart disease Melanoma Grandmother Arthritis Diabetes Kidney disease Alzheimer's dementia Brother Hypertension Surgical History History of colonoscopy H/O dilation and curettage S/P thyroid biopsy History of laparoscopy History of Social History household members: spouse current occupational status: employed current occupation: [employer] Smoking Status: Never smoker alcohol intake: current alcohol intake frequency: a few times a month substance use type: does not use what type of physical activity do you participate in: other frequency: 3-4 times per week seatbelt use: always do you feel safe at home: Yes additional social history: - [employer]- [employer] ROS <Dr. Bassam Robbins MD - Last Filed: 01/14/25 06:49> ROS ED Constitutional Constitutional ED: Denies chills, fever(s), subjective, sweats or weight loss Eyes Eyes: Denies blurry vision, change in vision or diplopia ENT ENT ED: Denies ear pain, rhinorrhea or sore throat Cardiovascular Cardiovascular: Denies chest pain, orthopnea, palpitations or racing heartbeat Respiratory/Chest Respiratory/Chest: Denies cough, dyspnea, dyspnea on exertion or orthopnea Gastrointestinal Gastrointestinal: Reports abdominal pain and nausea; Denies constipation, diarrhea, melena or vomiting Genitourinary Genitourinary ED: Denies dysuria, hematuria or urinary frequency Musculoskeletal Musculoskeletal: Denies arthralgias, back pain or myalgias Integumentary Denies Abrasions or rash Neurologic Neurologic: Denies headache(s), paresthesias or weakness Psychiatric Psychiatric: Denies anxiety or depression Endocrine Endocrinology: Denies cold intolerance or heat intolerance Hematologic/Lymphatic Hematologic/Lymphatic: Reports systems reviewed and no addt'l complaints, except as documented EXAM <Dr. Bassam Robbins MD - Last Filed: 01/14/25 06:49> Physical Exam Const Vital Signs: 01/08/25 23:22 01/08/25 23:22 01/08/25 23:37 Temperature 97.5 F L Temperature Source Oral Pulse Rate 75 Respiratory Rate 18 Respiratory Effort Normal Non-Labored Blood Pressure 171/89 H Blood Pressure Mean 116 Pulse Ox 98 Oxygen Delivery Method Room Air Room Air 01/09/25 00:22 01/09/25 01:00 01/09/25 02:00 Temperature Temperature Source Pulse Rate 69 67 66 Respiratory Rate 13 16 16 Respiratory Effort Blood Pressure 133/73 H 137/66 H 144/69 H Blood Pressure Mean 93 89 94 Pulse Ox 97 97 98 Oxygen Delivery Method Room Air Room Air Room Air 01/09/25 03:00 01/09/25 03:00 Temperature 98.2 F Temperature Source Pulse Rate 70 70 Respiratory Rate 18 18 Respiratory Effort Blood Pressure 136/70 H 136/70 H Blood Pressure Mean 92 92 Pulse Ox 97 97 Oxygen Delivery Method Room Air Positive well nourished and well developed Constitutional Narrative: BMI is 47.4 General Appearance ED: well developed and NAD; Negative for cyanotic or diaphoretic HEENT Reports dry mucous membranes HEENT Narrative: Head is atraumatic and normocephalic. Ears normal. Nares patent. Mouth ED: Yes dry mucous membranes Mouth: dry mucous membranes Eyes PERRL and EOMs intact bilaterally General Eye ED: Negative for pale conjunctiva or scleral icterus Neck no lymphadenopathy, supple and no JVD Chest Wall inspection of chest normal and palpation of chest normal Resp normal respiratory effort and clear to auscultation bilaterally Cardio regular rate, regular rhythm, S1 normal heart sound, S2 normal heart sound and no murmurs GI normal to inspection, nondistended, normoactive bowel sounds, non-tender, non-distended and no masses; Negative for hepatosplenomegaly GI Narrative: Exam limited due to body habitus. Extremity General Extremety ED: Yes edema General Extremity: edema Neuro oriented x3 and CN's II-XII intact bilaterally Sensorium / Orientation: alert Psych mental status grossly normal Skin Skin Narrative: Dry skin otherwise unremarkable. <Dr. Miguel Graham DO - Last Filed: 01/09/25 03:50> Physical Exam Const Vital Signs: 01/08/25 23:22 01/08/25 23:22 01/08/25 23:37 Temperature 97.5 F L Temperature Source Oral Pulse Rate 75 Respiratory Rate 18 Respiratory Effort Normal Non-Labored Blood Pressure 171/89 H Blood Pressure Mean 116 Pulse Ox 98 Oxygen Delivery Method Room Air Room Air 01/09/25 00:22 01/09/25 01:00 01/09/25 02:00 Temperature Temperature Source Pulse Rate 69 67 66 Respiratory Rate 13 16 16 Respiratory Effort Blood Pressure 133/73 H 137/66 H 144/69 H Blood Pressure Mean 93 89 94 Pulse Ox 97 97 98 Oxygen Delivery Method Room Air Room Air Room Air 01/09/25 03:00 01/09/25 03:00 Temperature 98.2 F Temperature Source Pulse Rate 70 70 Respiratory Rate 18 18 Respiratory Effort Blood Pressure 136/70 H 136/70 H Blood Pressure Mean 92 92 Pulse Ox 97 97 Oxygen Delivery Method Room Air MDM <Dr. Bassam Robbins MD - Last Filed: 01/14/25 06:49> MDM MDM Narrative Medical decision making narrative: Patient has a rhythm strip of her heart rate when it was 39. The rhythm strip is concerning for second-degree heart block especially since her heart rate is half of what it presently is. Suspect this is an interaction due to the fact she is on a calcium channel lida and a beta-lida. Nurse protocol was initiated. Suspect patient will need admission for observation and decrease her antihypertensive meds or change them. History & Record Review Additional record(s) reviewed:: Other (No records available since February 2019 for cough. She was seen by Dr. Martínez at that time. She was seen in 2017 for migraine headache by Dr. Roderick Ryder) Lab Data Attestation: I reviewed the patient's lab results. Lab results narrative: CBC is unremarkable. Electrolyte panel with slight elevation of glucose otherwise unremarkable. First troponin was normal at 12. 2-hour troponin is pending. Labs: Laboratory Results - last 24 hr 01/08/25 01/08/25 01/08/25 23:32 23:32 23:32 WBC Cancelled 8.0 Corrected WBC Cancelled RBC Cancelled 4.93 Hgb Cancelled Hct MCV MCH MCHC RDW Std Deviation RDW Coeff of Roberta Plt Count MPV Immature Gran % (Auto) Neut % (Auto) Lymph % (Auto) [place] % (Auto) Eos % (Auto) Baso % (Auto) Absolute Neuts (auto) Absolute Lymphs (auto) Total Counted Neutrophils % (Manual) Band Neutrophils % Lymphocytes % (Manual) Monocytes % (Manual) Eosinophils % (Manual) Basophils % (Manual) Metamyelocytes % Myelocytes % Promyelocytes % Blast Cells % Plasma Cell % (Manual) Other Cells % Nucleated RBC % Nucleated RBCs/100 WBC Differential Comment Diff Path Review Hypersegmented Neuts Atypical Lymphocytes Reactive Lymphocytes Smudge Cells Toxic Granulation Toxic Vacuolation Dohle Bodies Louie Rods Platelet Estimate Plt Morphology Comment RBC Morphology Polychromasia Hypochromasia Basophilic Stippling Anisocytosis Microcytosis Macrocytosis Spherocytes Sickle Cells Target Cells Tear Drop Cells Ovalocytes Stomatocytes [place] Bodies Luis Cells Bite Cells Crenated Cell Acanthocytes (Spur) Rouleaux Schistocytes Sodium Potassium Chloride Carbon Dioxide Anion Gap BUN Creatinine Estim Creat Clear Calc Est GFR (MDRD) Non-Af BUN/Creatinine Ratio Glucose Calcium Troponin T High Sens Troponin T Hi Sens 2 Hr 01/08/25 01/08/25 01/08/25 23:32 23:32 23:32 WBC Corrected WBC RBC Hgb 13.4 Hct Cancelled 40.9 MCV Cancelled 83.0 MCH Cancelled MCHC RDW Std Deviation RDW Coeff of Roberta Plt Count MPV Immature Gran % (Auto) Neut % (Auto) Lymph % (Auto) [place] % (Auto) Eos % (Auto) Baso % (Auto) Absolute Neuts (auto) Absolute Lymphs (auto) Total Counted Neutrophils % (Manual) Band Neutrophils % Lymphocytes % (Manual) Monocytes % (Manual) Eosinophils % (Manual) Basophils % (Manual) Metamyelocytes % Myelocytes % Promyelocytes % Blast Cells % Plasma Cell % (Manual) Other Cells % Nucleated RBC % Nucleated RBCs/100 WBC Differential Comment Diff Path Review Hypersegmented Neuts Atypical Lymphocytes Reactive Lymphocytes Smudge Cells Toxic Granulation Toxic Vacuolation Dohle Bodies Louie Rods Platelet Estimate Plt Morphology Comment RBC Morphology Polychromasia Hypochromasia Basophilic Stippling Anisocytosis Microcytosis Macrocytosis Spherocytes Sickle Cells Target Cells Tear Drop Cells Ovalocytes Stomatocytes [place] Bodies Luis Cells Bite Cells Crenated Cell Acanthocytes (Spur) Rouleaux Schistocytes Sodium Potassium Chloride Carbon Dioxide Anion Gap BUN Creatinine Estim Creat Clear Calc Est GFR (MDRD) Non-Af BUN/Creatinine Ratio Glucose Calcium Troponin T High Sens Troponin T Hi Sens 2 Hr 01/08/25 01/08/25 01/08/25 23:32 23:32 23:32 WBC Corrected WBC RBC Hgb Hct MCV MCH 27.2 MCHC Cancelled 32.8 RDW Std Deviation Cancelled 40.4 RDW Coeff of Roberta Cancelled Plt Count MPV Immature Gran % (Auto) Neut % (Auto) Lymph % (Auto) [place] % (Auto) Eos % (Auto) Baso % (Auto) Absolute Neuts (auto) Absolute Lymphs (auto) Total Counted Neutrophils % (Manual) Band Neutrophils % Lymphocytes % (Manual) Monocytes % (Manual) Eosinophils % (Manual) Basophils % (Manual) Metamyelocytes % Myelocytes % Promyelocytes % Blast Cells % Plasma Cell % (Manual) Other Cells % Nucleated RBC % Nucleated RBCs/100 WBC Differential Comment Diff Path Review Hypersegmented Neuts Atypical Lymphocytes Reactive Lymphocytes Smudge Cells Toxic Granulation Toxic Vacuolation Dohle Bodies Louie Rods Platelet Estimate Plt Morphology Comment RBC Morphology Polychromasia Hypochromasia Basophilic Stippling Anisocytosis Microcytosis Macrocytosis Spherocytes Sickle Cells Target Cells Tear Drop Cells Ovalocytes Stomatocytes [place] Bodies Luis Cells Bite Cells Crenated Cell Acanthocytes (Spur) Rouleaux Schistocytes Sodium Potassium Chloride Carbon Dioxide Anion Gap BUN Creatinine Estim Creat Clear Calc Est GFR (MDRD) Non-Af BUN/Creatinine Ratio Glucose Calcium Troponin T High Sens Troponin T Hi Sens 2 Hr 01/08/25 01/08/25 01/08/25 23:32 23:32 23:32 WBC Corrected WBC RBC Hgb Hct MCV MCH MCHC RDW Std Deviation RDW Coeff of Roberta 13.4 Plt Count Cancelled 433 MPV Cancelled 8.3 Immature Gran % (Auto) Cancelled Neut % (Auto) Lymph % (Auto) [place] % (Auto) Eos % (Auto) Baso % (Auto) Absolute Neuts (auto) Absolute Lymphs (auto) Total Counted Neutrophils % (Manual) Band Neutrophils % Lymphocytes % (Manual) Monocytes % (Manual) Eosinophils % (Manual) Basophils % (Manual) Metamyelocytes % Myelocytes % Promyelocytes % Blast Cells % Plasma Cell % (Manual) Other Cells % Nucleated RBC % Nucleated RBCs/100 WBC Differential Comment Diff Path Review Hypersegmented Neuts Atypical Lymphocytes Reactive Lymphocytes Smudge Cells Toxic Granulation Toxic Vacuolation Dohle Bodies Louie Rods Platelet Estimate Plt Morphology Comment RBC Morphology Polychromasia Hypochromasia Basophilic Stippling Anisocytosis Microcytosis Macrocytosis Spherocytes Sickle Cells Target Cells Tear Drop Cells Ovalocytes Stomatocytes [place] Bodies [place] Cells Bite Cells Crenated Cell Acanthocytes (Spur) Rouleaux Schistocytes Sodium Potassium Chloride Carbon Dioxide Anion Gap BUN Creatinine Estim Creat Clear Calc Est GFR (MDRD) Non-Af BUN/Creatinine Ratio Glucose Calcium Troponin T High Sens Troponin T Hi Sens 2 Hr 01/08/25 01/08/25 01/08/25 23:32 23:32 23:32 WBC Corrected WBC RBC Hgb Hct MCV MCH MCHC RDW Std Deviation RDW Coeff of Roberta Plt Count MPV Immature Gran % (Auto) 0.400 Neut % (Auto) Cancelled 48.6 Lymph % (Auto) Cancelled 39.0 [place] % (Auto) Cancelled Eos % (Auto) Baso % (Auto) Absolute Neuts (auto) Absolute Lymphs (auto) Total Counted Neutrophils % (Manual) Band Neutrophils % Lymphocytes % (Manual) Monocytes % (Manual) Eosinophils % (Manual) Basophils % (Manual) Metamyelocytes % Myelocytes % Promyelocytes % Blast Cells % Plasma Cell % (Manual) Other Cells % Nucleated RBC % Nucleated RBCs/100 WBC Differential Comment Diff Path Review Hypersegmented Neuts Atypical Lymphocytes Reactive Lymphocytes Smudge Cells Toxic Granulation Toxic Vacuolation Dohle Bodies Louie Rods Platelet Estimate Plt Morphology Comment RBC Morphology Polychromasia Hypochromasia Basophilic Stippling Anisocytosis Microcytosis Macrocytosis Spherocytes Sickle Cells Target Cells Tear Drop Cells Ovalocytes Stomatocytes [place] Bodies Luis Cells Bite Cells Crenated Cell Acanthocytes (Spur) Rouleaux Schistocytes Sodium Potassium Chloride Carbon Dioxide Anion Gap BUN Creatinine Estim Creat Clear Calc Est GFR (MDRD) Non-Af BUN/Creatinine Ratio Glucose Calcium Troponin T High Sens Troponin T Hi Sens 2 Hr 01/08/25 01/08/25 01/08/25 23:32 23:32 23:32 WBC Corrected WBC RBC Hgb Hct MCV MCH MCHC RDW Std Deviation RDW Coeff of Roberta Plt Count MPV Immature Gran % (Auto) Neut % (Auto) Lymph % (Auto) [place] % (Auto) 8.5 Eos % (Auto) Cancelled 2.4 Baso % (Auto) Cancelled 1.1 H Absolute Neuts (auto) Cancelled Absolute Lymphs (auto) Total Counted Neutrophils % (Manual) Band Neutrophils % Lymphocytes % (Manual) Monocytes % (Manual) Eosinophils % (Manual) Basophils % (Manual) Metamyelocytes % Myelocytes % Promyelocytes % Blast Cells % Plasma Cell % (Manual) Other Cells % Nucleated RBC % Nucleated RBCs/100 WBC Differential Comment Diff Path Review Hypersegmented Neuts Atypical Lymphocytes Reactive Lymphocytes Smudge Cells Toxic Granulation Toxic Vacuolation Dohle Bodies Louie Rods Platelet Estimate Plt Morphology Comment RBC Morphology Polychromasia Hypochromasia Basophilic Stippling Anisocytosis Microcytosis Macrocytosis Spherocytes Sickle Cells Target Cells Tear Drop Cells Ovalocytes Stomatocytes [place] Bodies [place] Cells Bite Cells Crenated Cell Acanthocytes (Spur) Rouleaux Schistocytes Sodium Potassium Chloride Carbon Dioxide Anion Gap BUN Creatinine Estim Creat Clear Calc Est GFR (MDRD) Non-Af BUN/Creatinine Ratio Glucose Calcium Troponin T High Sens Troponin T Hi Sens 2 Hr 01/08/25 01/08/25 01/08/25 23:32 23:32 23:32 WBC Corrected WBC RBC Hgb Hct MCV MCH MCHC RDW Std Deviation RDW Coeff of Roberta Plt Count MPV Immature Gran % (Auto) Neut % (Auto) Lymph % (Auto) [place] % (Auto) Eos % (Auto) Baso % (Auto) Absolute Neuts (auto) 3.9 Absolute Lymphs (auto) Cancelled 3.11 Total Counted Cancelled Neutrophils % (Manual) Cancelled Band Neutrophils % Cancelled Lymphocytes % (Manual) Cancelled Monocytes % (Manual) Cancelled Eosinophils % (Manual) Cancelled Basophils % (Manual) Cancelled Metamyelocytes % Cancelled Myelocytes % Cancelled Promyelocytes % Cancelled Blast Cells % Cancelled Plasma Cell % (Manual) Cancelled Other Cells % Cancelled Nucleated RBC % Cancelled 0 Nucleated RBCs/100 WBC Cancelled Differential Comment Cancelled Diff Path Review Cancelled Hypersegmented Neuts Cancelled Atypical Lymphocytes Cancelled Reactive Lymphocytes Cancelled Smudge Cells Cancelled Toxic Granulation Cancelled Toxic Vacuolation Cancelled Dohle Bodies Cancelled Louie Rods Cancelled Platelet Estimate Cancelled Plt Morphology Comment Cancelled RBC Morphology Cancelled Polychromasia Hypochromasia Basophilic Stippling Anisocytosis Microcytosis Macrocytosis Spherocytes Sickle Cells Target Cells Tear Drop Cells Ovalocytes Stomatocytes [place] Bodies [place] Cells Bite Cells Crenated Cell Acanthocytes (Spur) Rouleaux Schistocytes Sodium Potassium Chloride Carbon Dioxide Anion Gap BUN Creatinine Estim Creat Clear Calc Est GFR (MDRD) Non-Af BUN/Creatinine Ratio Glucose Calcium Troponin T High Sens Troponin T Hi Sens 2 Hr 01/08/25 01/09/25 23:32 01:47 WBC Corrected WBC RBC Hgb Hct MCV MCH MCHC RDW Std Deviation RDW Coeff of Roberta Plt Count MPV Immature Gran % (Auto) Neut % (Auto) Lymph % (Auto) [place] % (Auto) Eos % (Auto) Baso % (Auto) Absolute Neuts (auto) Absolute Lymphs (auto) Total Counted Neutrophils % (Manual) Band Neutrophils % Lymphocytes % (Manual) Monocytes % (Manual) Eosinophils % (Manual) Basophils % (Manual) Metamyelocytes % Myelocytes % Promyelocytes % Blast Cells % Plasma Cell % (Manual) Other Cells % Nucleated RBC % Nucleated RBCs/100 WBC Differential Comment Diff Path Review Hypersegmented Neuts Atypical Lymphocytes Reactive Lymphocytes Smudge Cells Toxic Granulation Toxic Vacuolation Dohle Bodies Louie Rods Platelet Estimate Plt Morphology Comment RBC Morphology Cancelled Polychromasia Cancelled Hypochromasia Cancelled Basophilic Stippling Cancelled Anisocytosis Cancelled Microcytosis Cancelled Macrocytosis Cancelled Spherocytes Cancelled Sickle Cells Cancelled Target Cells Cancelled Tear Drop Cells Cancelled Ovalocytes Cancelled Stomatocytes Cancelled [place] Bodies Cancelled Luis Cells Cancelled Bite Cells Cancelled Crenated Cell Cancelled Acanthocytes (Spur) Cancelled Rouleaux Cancelled Schistocytes Cancelled Sodium 137 Potassium 3.9 Chloride 102 Carbon Dioxide 23.2 Anion Gap 12 BUN 13 Creatinine 0.79 Estim Creat Clear Calc 138.99 Est GFR (MDRD) Non-Af 92 BUN/Creatinine Ratio 16.1 Glucose 103 H Calcium 8.8 Troponin T High Sens 12 Troponin T Hi Sens 2 Hr 14 Radiography Chest X-Ray - ED: 1 View ( This was independently interpreted by me.) and Read by ED Physician (There is mild cardiomegaly. There is no evidence of effusion. [place] is normal. Osseous structures are unremarkable. Lung parenchyma is unremarkable. Cardiac silhouette is normal.) Diagnostic Testing: Clinical Impression(s) from Imaging Studies Chest X-Ray 01/08/25 23:45 IMPRESSION: Mild cardiomegaly. No acute pulmonary disease. Reading Location: [facility] EKG Initial EKG: Attestation: I personally reviewed and interpreted this EKG as follows: Interpretation: Sinus Rhythm (Rate is 68. The EKG is normal. CT was 186 ms. QRS duration 90 ms. QT duration 400 ms. [place] is normal.) Follow-up EKG: Attestation: I personally reviewed and interpreted this EKG as follows: Interpretation: Sinus Rhythm (Rate is 68. There is frequent premature ventricular beats noted. CT interval is 180 ms. QRS duration 92 ms her QT duration of 160 ms. [place] is normal. This was obtained because nursing staff noted a change in her rate and rhythm.) Treatment and Re-Evaluation :: Case was turned over to the evening physician. Hospitalist to be paged after second troponin returns. <Dr. Miguel Graham, DO - Last Filed: 01/09/25 03:50> [facility] Lab Data Labs: Laboratory Results - last 24 hr 01/08/25 01/08/25 01/08/25 23:32 23:32 23:32 WBC Cancelled 8.0 Corrected WBC Cancelled RBC Cancelled 4.93 Hgb Cancelled Hct MCV MCH MCHC RDW Std Deviation RDW Coeff of Roberta Plt Count MPV Immature Gran % (Auto) Neut % (Auto) Lymph % (Auto) [place] % (Auto) Eos % (Auto) Baso % (Auto) Absolute Neuts (auto) Absolute Lymphs (auto) Total Counted Neutrophils % (Manual) Band Neutrophils % Lymphocytes % (Manual) Monocytes % (Manual) Eosinophils % (Manual) Basophils % (Manual) Metamyelocytes % Myelocytes % Promyelocytes % Blast Cells % Plasma Cell % (Manual) Other Cells % Nucleated RBC % Nucleated RBCs/100 WBC Differential Comment Diff Path Review Hypersegmented Neuts Atypical Lymphocytes Reactive Lymphocytes Smudge Cells Toxic Granulation Toxic Vacuolation Dohle Bodies Louie Rods Platelet Estimate Plt Morphology Comment RBC Morphology Polychromasia Hypochromasia Basophilic Stippling Anisocytosis Microcytosis Macrocytosis Spherocytes Sickle Cells Target Cells Tear Drop Cells Ovalocytes Stomatocytes [place] Bodies [place] Cells Bite Cells Crenated Cell Acanthocytes (Spur) Rouleaux Schistocytes Sodium Potassium Chloride Carbon Dioxide Anion Gap BUN Creatinine Estim Creat Clear Calc Est GFR (MDRD) Non-Af BUN/Creatinine Ratio Glucose Calcium Troponin T High Sens Troponin T Hi Sens 2 Hr 01/08/25 01/08/25 01/08/25 23:32 23:32 23:32 WBC Corrected WBC RBC Hgb 13.4 Hct Cancelled 40.9 MCV Cancelled 83.0 MCH Cancelled MCHC RDW Std Deviation RDW Coeff of Roberta Plt Count MPV Immature Gran % (Auto) Neut % (Auto) Lymph % (Auto) [place] % (Auto) Eos % (Auto) Baso % (Auto) Absolute Neuts (auto) Absolute Lymphs (auto) Total Counted Neutrophils % (Manual) Band Neutrophils % Lymphocytes % (Manual) Monocytes % (Manual) Eosinophils % (Manual) Basophils % (Manual) Metamyelocytes % Myelocytes % Promyelocytes % Blast Cells % Plasma Cell % (Manual) Other Cells % Nucleated RBC % Nucleated RBCs/100 WBC Differential Comment Diff Path Review Hypersegmented Neuts Atypical Lymphocytes Reactive Lymphocytes Smudge Cells Toxic Granulation Toxic Vacuolation Dohle Bodies Louie Rods Platelet Estimate Plt Morphology Comment RBC Morphology Polychromasia Hypochromasia Basophilic Stippling Anisocytosis Microcytosis Macrocytosis Spherocytes Sickle Cells Target Cells Tear Drop Cells Ovalocytes Stomatocytes [place] Bodies [place] Cells Bite Cells Crenated Cell Acanthocytes (Spur) Rouleaux Schistocytes Sodium Potassium Chloride Carbon Dioxide Anion Gap BUN Creatinine Estim Creat Clear Calc Est GFR (MDRD) Non-Af BUN/Creatinine Ratio Glucose Calcium Troponin T High Sens Troponin T Hi Sens 2 Hr 01/08/25 01/08/25 01/08/25 23:32 23:32 23:32 WBC Corrected WBC RBC Hgb Hct MCV MCH 27.2 MCHC Cancelled 32.8 RDW Std Deviation Cancelled 40.4 RDW Coeff of Roberta Cancelled Plt Count MPV Immature Gran % (Auto) Neut % (Auto) Lymph % (Auto) [place] % (Auto) Eos % (Auto) Baso % (Auto) Absolute Neuts (auto) Absolute Lymphs (auto) Total Counted Neutrophils % (Manual) Band Neutrophils % Lymphocytes % (Manual) Monocytes % (Manual) Eosinophils % (Manual) Basophils % (Manual) Metamyelocytes % Myelocytes % Promyelocytes % Blast Cells % Plasma Cell % (Manual) Other Cells % Nucleated RBC % Nucleated RBCs/100 WBC Differential Comment Diff Path Review Hypersegmented Neuts Atypical Lymphocytes Reactive Lymphocytes Smudge Cells Toxic Granulation Toxic Vacuolation Dohle Bodies Louie Rods Platelet Estimate Plt Morphology Comment RBC Morphology Polychromasia Hypochromasia Basophilic Stippling Anisocytosis Microcytosis Macrocytosis Spherocytes Sickle Cells Target Cells Tear Drop Cells Ovalocytes Stomatocytes [place] Bodies Luis Cells Bite Cells Crenated Cell Acanthocytes (Spur) Rouleaux Schistocytes Sodium Potassium Chloride Carbon Dioxide Anion Gap BUN Creatinine Estim Creat Clear Calc Est GFR (MDRD) Non-Af BUN/Creatinine Ratio Glucose Calcium Troponin T High Sens Troponin T Hi Sens 2 Hr 01/08/25 01/08/25 01/08/25 23:32 23:32 23:32 WBC Corrected WBC RBC Hgb Hct MCV MCH MCHC RDW Std Deviation RDW Coeff of Roberta 13.4 Plt Count Cancelled 433 MPV Cancelled 8.3 Immature Gran % (Auto) Cancelled Neut % (Auto) Lymph % (Auto) [place] % (Auto) Eos % (Auto) Baso % (Auto) Absolute Neuts (auto) Absolute Lymphs (auto) Total Counted Neutrophils % (Manual) Band Neutrophils % Lymphocytes % (Manual) Monocytes % (Manual) Eosinophils % (Manual) Basophils % (Manual) Metamyelocytes % Myelocytes % Promyelocytes % Blast Cells % Plasma Cell % (Manual) Other Cells % Nucleated RBC % Nucleated RBCs/100 WBC Differential Comment Diff Path Review Hypersegmented Neuts Atypical Lymphocytes Reactive Lymphocytes Smudge Cells Toxic Granulation Toxic Vacuolation Dohle Bodies Louie Rods Platelet Estimate Plt Morphology Comment RBC Morphology Polychromasia Hypochromasia Basophilic Stippling Anisocytosis Microcytosis Macrocytosis Spherocytes Sickle Cells Target Cells Tear Drop Cells Ovalocytes Stomatocytes [place] Bodies [place] Cells Bite Cells Crenated Cell Acanthocytes (Spur) Rouleaux Schistocytes Sodium Potassium Chloride Carbon Dioxide Anion Gap BUN Creatinine Estim Creat Clear Calc Est GFR (MDRD) Non-Af BUN/Creatinine Ratio Glucose Calcium Troponin T High Sens Troponin T Hi Sens 2 Hr 01/08/25 01/08/25 01/08/25 23:32 23:32 23:32 WBC Corrected WBC RBC Hgb Hct MCV MCH MCHC RDW Std Deviation RDW Coeff of Roberta Plt Count MPV Immature Gran % (Auto) 0.400 Neut % (Auto) Cancelled 48.6 Lymph % (Auto) Cancelled 39.0 [place] % (Auto) Cancelled Eos % (Auto) Baso % (Auto) Absolute Neuts (auto) Absolute Lymphs (auto) Total Counted Neutrophils % (Manual) Band Neutrophils % Lymphocytes % (Manual) Monocytes % (Manual) Eosinophils % (Manual) Basophils % (Manual) Metamyelocytes % Myelocytes % Promyelocytes % Blast Cells % Plasma Cell % (Manual) Other Cells % Nucleated RBC % Nucleated RBCs/100 WBC Differential Comment Diff Path Review Hypersegmented Neuts Atypical Lymphocytes Reactive Lymphocytes Smudge Cells Toxic Granulation Toxic Vacuolation Dohle Bodies Louie Rods Platelet Estimate Plt Morphology Comment RBC Morphology Polychromasia Hypochromasia Basophilic Stippling Anisocytosis Microcytosis Macrocytosis Spherocytes Sickle Cells Target Cells Tear Drop Cells Ovalocytes Stomatocytes [place] Bodies Luis Cells Bite Cells Crenated Cell Acanthocytes (Spur) Rouleaux Schistocytes Sodium Potassium Chloride Carbon Dioxide Anion Gap BUN Creatinine Estim Creat Clear Calc Est GFR (MDRD) Non-Af BUN/Creatinine Ratio Glucose Calcium Troponin T High Sens Troponin T Hi Sens 2 Hr 01/08/25 01/08/25 01/08/25 23:32 23:32 23:32 WBC Corrected WBC RBC Hgb Hct MCV MCH MCHC RDW Std Deviation RDW Coeff of Roberta Plt Count MPV Immature Gran % (Auto) Neut % (Auto) Lymph % (Auto) [place] % (Auto) 8.5 Eos % (Auto) Cancelled 2.4 Baso % (Auto) Cancelled 1.1 H Absolute Neuts (auto) Cancelled Absolute Lymphs (auto) Total Counted Neutrophils % (Manual) Band Neutrophils % Lymphocytes % (Manual) Monocytes % (Manual) Eosinophils % (Manual) Basophils % (Manual) Metamyelocytes % Myelocytes % Promyelocytes % Blast Cells % Plasma Cell % (Manual) Other Cells % Nucleated RBC % Nucleated RBCs/100 WBC Differential Comment Diff Path Review Hypersegmented Neuts Atypical Lymphocytes Reactive Lymphocytes Smudge Cells Toxic Granulation Toxic Vacuolation Dohle Bodies Louie Rods Platelet Estimate Plt Morphology Comment RBC Morphology Polychromasia Hypochromasia Basophilic Stippling Anisocytosis Microcytosis Macrocytosis Spherocytes Sickle Cells Target Cells Tear Drop Cells Ovalocytes Stomatocytes [place] Bodies [place] Cells Bite Cells Crenated Cell Acanthocytes (Spur) Rouleaux Schistocytes Sodium Potassium Chloride Carbon Dioxide Anion Gap BUN Creatinine Estim Creat Clear Calc Est GFR (MDRD) Non-Af BUN/Creatinine Ratio Glucose Calcium Troponin T High Sens Troponin T Hi Sens 2 Hr 01/08/25 01/08/25 01/08/25 23:32 23:32 23:32 WBC Corrected WBC RBC Hgb Hct MCV MCH MCHC RDW Std Deviation RDW Coeff of Roberta Plt Count MPV Immature Gran % (Auto) Neut % (Auto) Lymph % (Auto) [place] % (Auto) Eos % (Auto) Baso % (Auto) Absolute Neuts (auto) 3.9 Absolute Lymphs (auto) Cancelled 3.11 Total Counted Cancelled Neutrophils % (Manual) Cancelled Band Neutrophils % Cancelled Lymphocytes % (Manual) Cancelled Monocytes % (Manual) Cancelled Eosinophils % (Manual) Cancelled Basophils % (Manual) Cancelled Metamyelocytes % Cancelled Myelocytes % Cancelled Promyelocytes % Cancelled Blast Cells % Cancelled Plasma Cell % (Manual) Cancelled Other Cells % Cancelled Nucleated RBC % Cancelled 0 Nucleated RBCs/100 WBC Cancelled Differential Comment Cancelled Diff Path Review Cancelled Hypersegmented Neuts Cancelled Atypical Lymphocytes Cancelled Reactive Lymphocytes Cancelled Smudge Cells Cancelled Toxic Granulation Cancelled Toxic Vacuolation Cancelled Dohle Bodies Cancelled Louie Rods Cancelled Platelet Estimate Cancelled Plt Morphology Comment Cancelled RBC Morphology Cancelled Polychromasia Hypochromasia Basophilic Stippling Anisocytosis Microcytosis Macrocytosis Spherocytes Sickle Cells Target Cells Tear Drop Cells Ovalocytes Stomatocytes [place] Bodies Luis Cells Bite Cells Crenated Cell Acanthocytes (Spur) Rouleaux Schistocytes Sodium Potassium Chloride Carbon Dioxide Anion Gap BUN Creatinine Estim Creat Clear Calc Est GFR (MDRD) Non-Af BUN/Creatinine Ratio Glucose Calcium Troponin T High Sens Troponin T Hi Sens 2 Hr 01/08/25 01/09/25 23:32 01:47 WBC Corrected WBC RBC Hgb Hct MCV MCH MCHC RDW Std Deviation RDW Coeff of Roberta Plt Count MPV Immature Gran % (Auto) Neut % (Auto) Lymph % (Auto) [place] % (Auto) Eos % (Auto) Baso % (Auto) Absolute Neuts (auto) Absolute Lymphs (auto) Total Counted Neutrophils % (Manual) Band Neutrophils % Lymphocytes % (Manual) Monocytes % (Manual) Eosinophils % (Manual) Basophils % (Manual) Metamyelocytes % Myelocytes % Promyelocytes % Blast Cells % Plasma Cell % (Manual) Other Cells % Nucleated RBC % Nucleated RBCs/100 WBC Differential Comment Diff Path Review Hypersegmented Neuts Atypical Lymphocytes Reactive Lymphocytes Smudge Cells Toxic Granulation Toxic Vacuolation Dohle Bodies Louie Rods Platelet Estimate Plt Morphology Comment RBC Morphology Cancelled Polychromasia Cancelled Hypochromasia Cancelled Basophilic Stippling Cancelled Anisocytosis Cancelled Microcytosis Cancelled Macrocytosis Cancelled Spherocytes Cancelled Sickle Cells Cancelled Target Cells Cancelled Tear Drop Cells Cancelled Ovalocytes Cancelled Stomatocytes Cancelled [place] Bodies Cancelled [place] Cells Cancelled Bite Cells Cancelled Crenated Cell Cancelled Acanthocytes (Spur) Cancelled Rouleaux Cancelled Schistocytes Cancelled Sodium 137 Potassium 3.9 Chloride 102 Carbon Dioxide 23.2 Anion Gap 12 BUN 13 Creatinine 0.79 Estim Creat Clear Calc 138.99 Est GFR (MDRD) Non-Af 92 BUN/Creatinine Ratio 16.1 Glucose 103 H Calcium 8.8 Troponin T High Sens 12 Troponin T Hi Sens 2 Hr 14 Radiography Diagnostic Testing: Clinical Impression(s) from Imaging Studies Chest X-Ray 01/08/25 23:45 IMPRESSION: Mild cardiomegaly. No acute pulmonary disease. Reading Location: [id number] Management Discussion w/another healthcare provider: Hospitalist Treatment and Re-Evaluation Comments:: Patient was signed out to me awaiting the second troponin. The initial value was 12 with a 2-hour delta increasing by a value of 2 to 14 which is not clinically significant. She did not have any further bouts of bradycardia while in the ER but her smart watch did record the event noting a bradycardic event of approximate 30 bpm during her sensation of palpitations. At this time the most likely cause is her medication. She will need to be monitored in the hospital for return of her abnormal heart rhythm and to discuss changes in medication with the sumatra opener and therefore should be admitted for continued care Discharge Plan Dx/Rx/DC Orders Clinical Impression: Bradycardia with 31-40 beats per minute, Mobitz type 2 second degree heart block, Obstructive sleep apnea, Prediabetes, Hypertension Disposition Disposition: Acute Care [facility] Discharge Date/Time: 01/09/25 04:22
[2025-01-09] VITALS (9 sets, daily range): BP systolic 126–171; BP diastolic 66–96; PULSE 65–73; RESP 13–18; TEMP 36.2–37.1; O2SAT 97–99; BMI 44.9; BMI 45.1
[2025-01-09 00:10] LABS: Anion Gap 12 (5-15); BUN 13 mg/dL (4-19); BUN/Creat Ratio 16.1 RATIO (10-20); Calcium,Total 8.8 mg/dL (7.6-11.0); Carbon Dioxide 23.2 mmol/L (21.0-32.0); Chloride 102 mmol/L (98-108); Estimated Creatinine Clearance 138.99 ml/min (50-250); Glucose 103 mg/dL (70-99); Potassium 3.9 mmol/L (3.3-5.1); Troponin T High Sensitivity 12 ng/L (<=14)
--- NOTE | 2025-01-09 01:20 | EKG12_ITS ---
Test Reason : DYSRHYTHMIA Blood Pressure : */* mmHG Vent. Rate : 68 BPM Atrial Rate : 68 BPM P-R Int : 188 ms QRS Dur : 92 ms QT Int : 416 ms P-R-T Axes : 51 11 29 degrees QTcB Int : 442 ms Sinus rhythm with frequent Premature ventricular complexes Otherwise normal ECG Confirmed by ALONDRA POLK, SAMRA ([id number]), news editor AMERICA RICARDO ([id number]) on 01/09/2025 8:24:55 AM Referred By: GAVIN Confirmed By: SAMRA CANTU MD
[2025-01-09 02:37] LABS: Troponin T High Sens 2 HR 14 ng/L (<=14)
--- NOTE | 2025-01-09 03:11 | PCM.HP.STD ---
HPI - General General Date of Admission: 01/09/25 Date of Service: 01/09/25 Chief Complaint: Symptomatic bradycardia HPI Narrative The patient is a 49 y/o F w/ PMHx: Anxiety and depression, ROB, Morbid obesity, Chronic migraines, IBS, Pre-Diabetes mellitus type II, ROB, HTN, HLD, Hx renal artery HTN, PCOS, GERD who presents to the [facility] ED on 01/09/2025 with complaint of noted bradycardia per her watch reporting that she had received an alerts from her smart watch with sensation of palpitations, slight epigastric discomfort and nausea on amlodipine and labetalol with no change in the medications recently with the tracing made per the watch with some concern that was consistent with a second-degree heart block with no lightheadedness nor any chest pain or dyspnea but given this presentation prompted ED evaluation. Patient does report that she has been on labetalol for many years and has had similar episodes previously but her heart rate eventually improved. Currently her rate is in the 70s and she notes feeling improved with no further deleterious effects. Workup in the ED included T97.5, heart 75, BP 171/89, respiratory rate 18, 98% on room air with most recent repeat vitals heart rate 70, BP 136/70, respiratory rate 18, 97% on room air, CBC with WC 8, hemoglobin 13.4, platelet 433 without marked shift, BMP unremarkable, glucose 103, troponin initial 12 with repeat delta troponin 14, chest x-ray with mild cardiomegaly with no acute cardiopulmonary findings otherwise, EKG with sinus rhythm with no acute evidence of ischemia. [facility] Medical History Anosmia Upper respiratory infection Family history of early CAD Obesity Migraine Health care maintenance Preventative health care Chest pain Family history of heart disease in male family member before age 55 IBS (irritable bowel syndrome) Change in bowel habit Abdominal pain Gastroenteritis UTI (urinary tract infection) Cloudy urine Suprapubic abdominal pain Back pain with sciatica PCOS (polycystic ovarian syndrome) Chronic headaches Thyromegaly Hypertension Dermatofibroma Thyroid nodule Vitamin D deficiency Mixed hyperlipidemia Anxiety Renal arterial hypertension Mitral regurgitation GERD without esophagitis Home Medications ?Medication ?Instructions ?Recorded ?Last Taken ?Type multivitamin 1 cap PO QDAY 07/05/17 Unknown History lactobacillus combination no.8 3 3,000 mmu cells PO DAILY PRN 05/08/19 Unknown History billion cell capsule (Adult probiotic Probiotic) cholecalciferol (vitamin D3) 10 10 mcg PO DAILY 09/16/23 Unknown History mcg (400 unit) capsule fluticasone propionate 50 2 spray intranasal DAILY PRN 04/26/24 Unknown History mcg/actuation nasal allergy symptoms spray,suspension biotin 10,000 mcg capsule 1 cap PO DAILY 07/26/24 Unknown History amlodipine 5 mg tablet See Rx Instructions .Route 09/19/24 Unknown Rx .COMPLEX #90 tabs citalopram 20 mg tablet See Rx Instructions .Route 09/19/24 Unknown Rx .COMPLEX #90 tabs labetalol 200 mg tablet 400 mg (2 x 200 mg) PO BID #360 11/29/24 Unknown Rx TABLETS magnesium glycinate mg PO QDAY 11/29/24 Unknown History Allergy/AdvReac Type Severity Reaction Status Date / Time lanolin Allergy Hives Verified 11/29/24 13:06 povidone-iodine (From Allergy Hives Verified 11/29/24 13:06 Betadine) soap (From Betadine) Allergy Hives Verified 11/29/24 13:06 lidocaine AdvReac Hives Verified 11/29/24 13:06 Family History Mother Hypertension High cholesterol Anemia Anxiety Arthritis Autoimmune disorder Parkinsons disease Father Heart disease Hypertension High cholesterol Diabetes Angina at rest Kidney disease CVA (cerebral vascular accident) Grandfather Colon cancer Diabetes Myocardial infarction Heart disease Melanoma Grandmother Arthritis Diabetes Kidney disease Alzheimer's dementia Brother Hypertension Surgical History History of colonoscopy H/O dilation and curettage S/P thyroid biopsy History of laparoscopy History of Social History household members: spouse current occupational status: employed current occupation: [employer] Smoking Status: Never smoker alcohol intake: current alcohol intake frequency: a few times a month substance use type: does not use what type of physical activity do you participate in: other frequency: 3-4 times per week seatbelt use: always do you feel safe at home: Yes additional social history: - [employer] Narrative Admission Review of Systems: CONSTITUTIONAL: No weight loss, fever, chills, + weakness or fatigue. HEENT: Eyes: No visual loss, blurred vision, double vision or yellow sclerae. Ears, Nose, Throat: No hearing loss, sneezing, congestion, runny nose or sore throat. SKIN: No rash or itching, lesions, wounds. CARDIOVASCULAR: + Palpitations. No chest pain, chest pressure or chest discomfort, edema, orthopnea, syncopal events. RESPIRATORY: No shortness of breath, cough or sputum, wheezing, hemoptysis. GASTROINTESTINAL: + Dyspepsia, nausea. No vomiting or diarrhea, abdominal pain, melena, BRBPR. GENITOURINARY: No dysuria, frequency, urgency or retention. NEUROLOGICAL: No headache, dizziness, syncope, paralysis, ataxia, numbness or tingling in the extremities, focal weakness, change in bowel or bladder control, seizure. MUSCULOSKELETAL: + muscle, back pain, joint pain or stiffness. HEMATOLOGIC: No anemia, bleeding or bruising. LYMPHATICS: No enlarged nodes. No history of splenectomy. PSYCHIATRIC: + History of anxiety and depression. ENDOCRINOLOGIC: No reports of sweating, cold or heat intolerance. No polyuria or polydipsia. ALLERGIES: + History of hives, allergic rhinitis. Vital Signs Vital Signs Vital Signs: 01/08/25 23:22 01/08/25 23:22 01/08/25 23:37 Temperature 97.5 F L Temperature Source Oral Pulse Rate 75 Respiratory Rate 18 Respiratory Effort Normal Non-Labored Blood Pressure 171/89 H Blood Pressure Mean 116 Pulse Ox 98 Oxygen Delivery Method Room Air Room Air 01/09/25 00:22 01/09/25 01:00 01/09/25 02:00 Temperature Temperature Source Pulse Rate 69 67 66 Respiratory Rate 13 16 16 Respiratory Effort Blood Pressure 133/73 H 137/66 H 144/69 H Blood Pressure Mean 93 89 94 Pulse Ox 97 97 98 Oxygen Delivery Method Room Air Room Air Room Air 01/09/25 03:00 01/09/25 03:00 Temperature 98.2 F Temperature Source Pulse Rate 70 70 Respiratory Rate 18 18 Respiratory Effort Blood Pressure 136/70 H 136/70 H Blood Pressure Mean 92 92 Pulse Ox 97 97 Oxygen Delivery Method Room Air Weight Weight: 330 lb 11.094 oz Body Mass Index (BMI) 47.4 Physical Exam Narrative Physical Examination: General: Awake, alert, oriented x 3 and cooperative, laying in ED bed, notes feeling improved, rate currently in the 70s. Skin: Normal color, normal turgor, no icterus, no cyanosis except occasional stage ecchymoses, abrasion. HEENT: AT/NC, EOMI, PERRLA, MMM, no carotid bruits, difficult to discern JVD given thickened neck. Lungs: Mildly diminished, greater bases, appropriate effort, no rales, ronchi or wheezing. Heart: Regular rate and rhythm; no gallop, rub audible. Abdomen: Soft, morbidly obese NTTP, distant BS, difficult to discern distention and HSM given habitus. Extremities: No cyanosis, clubbing, or edema. Neurological: Patient awake, alert, oriented as noted, cognitive function intact; pupils equally reactive to light and accommodation, cranial nerves grossly normal, moving all 4 extremities, no focal deficits, strength mildly to moderately gluteal crease but improved since initial ED arrival. Psychiatric: Affect appears mildly flat, fatigued, no acute evidence of depressive or anxiety feelings but does have underlying history. Results Lab / Micro Data 01/08/25 23:32 01/08/25 23:32 Labs: Laboratory Results - last 24 hr 01/08/25 23:32: WBC Cancelled 01/08/25 23:32: WBC 8.0, Corrected WBC Cancelled, RBC Cancelled 01/08/25 23:32: RBC 4.93, Hgb Cancelled 01/08/25 23:32: Hgb 13.4, Hct Cancelled 01/08/25 23:32: Hct 40.9, MCV Cancelled 01/08/25 23:32: MCV 83.0, MCH Cancelled 01/08/25 23:32: MCH 27.2, MCHC Cancelled 01/08/25 23:32: MCHC 32.8, RDW Std Deviation Cancelled 01/08/25 23:32: RDW Std Deviation 40.4, RDW Coeff of Roberta Cancelled 01/08/25 23:32: RDW Coeff of Roberta 13.4, Plt Count Cancelled 01/08/25 23:32: Plt Count 433, MPV Cancelled 01/08/25 23:32: MPV 8.3, Immature Gran % (Auto) Cancelled 01/08/25 23:32: Immature Gran % (Auto) 0.400, Neut % (Auto) Cancelled 01/08/25 23:32: Neut % (Auto) 48.6, Lymph % (Auto) Cancelled 01/08/25 23:32: Lymph % (Auto) 39.0, [place] % (Auto) Cancelled 01/08/25 23:32: [place] % (Auto) 8.5, Eos % (Auto) Cancelled 01/08/25 23:32: Eos % (Auto) 2.4, Baso % (Auto) Cancelled 01/08/25 23:32: Baso % (Auto) 1.1 H, Absolute Neuts (auto) Cancelled 01/08/25 23:32: Absolute Neuts (auto) 3.9, Absolute Lymphs (auto) Cancelled 01/08/25 23:32: Absolute Lymphs (auto) 3.11, Total Counted Cancelled, Neutrophils % (Manual) Cancelled, Band Neutrophils % Cancelled, Lymphocytes % (Manual) Cancelled, Monocytes % (Manual) Cancelled, Eosinophils % (Manual) Cancelled, Basophils % (Manual) Cancelled, Metamyelocytes % Cancelled, Myelocytes % Cancelled, Promyelocytes % Cancelled, Blast Cells % Cancelled, Plasma Cell % (Manual) Cancelled, Other Cells % Cancelled, Nucleated RBC % Cancelled 01/08/25 23:32: Nucleated RBC % 0, Nucleated RBCs/100 WBC Cancelled, Differential Comment Cancelled, Diff Path Review Cancelled, Hypersegmented Neuts Cancelled, Atypical Lymphocytes Cancelled, Reactive Lymphocytes Cancelled, Smudge Cells Cancelled, Toxic Granulation Cancelled, Toxic Vacuolation Cancelled, Dohle Bodies Cancelled, Louie Rods Cancelled, Platelet Estimate Cancelled, Plt Morphology Comment Cancelled, RBC Morphology Cancelled 01/08/25 23:32: RBC Morphology Cancelled, Polychromasia Cancelled, Hypochromasia Cancelled, Basophilic Stippling Cancelled, Anisocytosis Cancelled, Microcytosis Cancelled, Macrocytosis Cancelled, Spherocytes Cancelled, Sickle Cells Cancelled, Target Cells Cancelled, Tear Drop Cells Cancelled, Ovalocytes Cancelled, Stomatocytes Cancelled, [place] Bodies Cancelled, Luis Cells Cancelled, Bite Cells Cancelled, Crenated Cell Cancelled, Acanthocytes (Spur) Cancelled, Rouleaux Cancelled, Schistocytes Cancelled, Sodium 137, Potassium 3.9, Chloride 102, Carbon Dioxide 23.2, Anion Gap 12, BUN 13, Creatinine 0.79, Estim Creat Clear Calc 138.99, Est GFR (MDRD) Non-Af 92, BUN/Creatinine Ratio 16.1, Glucose 103 H, Calcium 8.8, Troponin T High Sens 12 01/09/25 01:47: Troponin T Hi Sens 2 Hr 14 Imaging Radiology Impression Chest X-Ray 01/08/25 23:45 IMPRESSION: Mild cardiomegaly. No acute pulmonary disease. Reading Location: [id number] Assessment & Plan Assessment/Plan (1) Mobitz type 2 second degree heart block: (2) Bradycardia with 31-40 beats per minute: PLAN: Plan The patient is a 49 y/o F w/ PMHx: Anxiety and depression, ROB, Morbid obesity, Chronic migraines, IBS, Pre-Diabetes mellitus type II, ROB, HTN, HLD, Hx renal artery HTN, PCOS, GERD who presents to the [facility] ED on 01/09/2025 with complaint of noted bradycardia per her watch reporting that she had received an alerts from her smart watch with sensation of palpitations, slight epigastric discomfort and nausea on amlodipine and labetalol with no change in the medications recently with the tracing made per the watch with some concern that was consistent with a second-degree heart block with no lightheadedness nor any chest pain or dyspnea but given this presentation prompted ED evaluation. #1. Symptomatic bradycardia with a second-degree heart block possibly secondary to chronic beta-lida therapy: Will admit to PCU, place on a monitored bed to assure no acute myocardial infarction with serial cardiac enzymes and EKGs. Will hold beta-lida therapy. Magnesium requested, TSH requested. Will continue telemetry monitoring with repeat EKG also in AM. Pending response following beta-lida therapy hold and repeat EKG may need to consider cardiology involvement if not resolving. #2. Hypertension, history of renal artery hypertension: Continue home regimen including amlodipine, PRN hydralazine. Holding labetalol given secondary block #3. Hyperlipidemia: Noted history, but currently does not appear to be on regimen but clarified to be certain. #4. Pre-Diabetes mellitus type II: Clarify medication is none currently listed, does admit to diabetic history, maintained on ADA diet, accu checks w/ ISS. #5. PCOS: Per current list does not appear to be on any agents including metformin or spironolactone, encouraged continued follow-up outpatient. #6. Morbid Obesity: Weight loss and lifestyle changes encouraged. #7. Anxiety and depression: Will continue patient home citalopram regimen #8. GERD: Per current list does not appear to be on regimen, given recent dyspepsia complaints will place on PPI with as needed Mylanta as well. #9. ROB: Patient notes that she does not use any PAP therapy nightly. #10. DVT prophylaxis: Lovenox. Charges/Coding Visit Charges Inpatient E&M: 58690 Init Hosp L3
[2025-01-09 04:23] LABS: Troponin T High Sens 4 HR 13 ng/L (<=14)
--- NOTE | 2025-01-09 04:35 | ECHOD_ITS ---
Reason For Study Reason For Study: Arrhythmia Procedure This was a 2D Doppler, Color Flow transthoracic echocardiogram. Exam performed portable in patient room. Left Ventricle Normal LV size. Left ventricular systolic function is normal. The left ventricular ejection fraction is 55 %. No regional wall motion abnormalities noted. Right Ventricle Normal RV size. Normal systolic function. Atria Normal left atrium. Normal right atrium. Mitral Valve Normal mitral valve. Tricuspid Valve Normal tricuspid valve. Mild (1+) tricuspid valve insufficiency. Pulmonary artery systolic pressure is 22 mmHg. Aortic Valve Normal aortic valve. Trisinus/trileaflet aortic valve. Mild (1+) aortic valve insufficiency. Pulmonic Valve Normal pulmonic valve. Great Vessels Mild to moderately dilated aortic root. The pulmonary artery is normal size. Inferior vena cava collapse with respiration. Pericardium/Pleural No pericardial effusion. MMode/2D Measurements & Calculations LVIDd: 5.8 cm IVSd: 1.3 cm LVOT diam: 2.2 cm LVIDs: 3.8 cm LVPWd: 1.1 cm LVOT area: 4.0 cm2 RVDd: 3.8 cm FS: 34.8 % asc Aorta Diam: 4.3 cm LAV(MOD-bp): 54.3 ml LVAd ap4: 35.7 cm2 LAV(MOD-bp) Indexed: 21.3 ml/m2 LVLd ap4: 8.6 cm LAV(MOD-sp2): 56.1 ml EDV(MOD-sp4): 118.6 ml LAV(MOD-sp4): 45.6 ml EDV(sp4-el): 125.5 ml LVAs ap4: 19.4 cm2 LVLs ap4: 7.2 cm ESV(MOD-sp4): 44.5 ml ESV(sp4-el): 44.7 ml EF(MOD-sp4): 62.5 % EF(sp4-el): 64.3 % SV(MOD-sp4): 74.1 ml SV(sp4-el): 80.7 ml LA A4 area: 16.3 cm2 SI(MOD-sp4): 29.0 ml/m2 RA A4 area: 17.7 cm2 Time Measurements MV dec time: 0.25 sec Doppler Measurements & Calculations MV E max michael: 71.8 cm/sec Lat Peak E' Michael: 11.3 cm/sec Med Peak E' Michael: 8.7 cm/sec MV A max micahel: 91.2 cm/sec E/E' lat: 6.4 E/E' med: 8.3 MV E/A: 0.79 MV V2 max: 111.3 cm/sec MV P1/2t max michael: 111.7 cm/sec Ao V2 max: 145.0 cm/sec MV max P.0 mmHg MV P1/2t: 103.4 msec Ao max P.4 mmHg MV V2 mean: 68.4 cm/sec Ao V2 mean: 93.8 cm/sec MV mean P.1 mmHg MV dec slope: 316.5 cm/sec2 Ao mean P.1 mmHg MV V2 VTI: 38.0 cm MVA(P1/2t): 2.1 cm2 Ao V2 VTI: 34.0 cm AV (velocity ratio): 0.78 MVA(VTI): 2.8 cm2 ANAYELI(I,D): 3.1 cm2 ANAYELI(V,D): 2.8 cm2 AI max michael: 346.8 cm/sec LV V1 max: 103.9 cm/sec SV(LVOT): 104.8 ml AI max P.3 mmHg LV V1 max P.3 mmHg LV V1 mean P.5 mmHg AI dec slope: 96.9 cm/sec2 LV V1 mean: 75.2 cm/sec AI P1/2t: 1048 msec LV V1 VTI: 26.4 cm PA V2 max: 79.7 cm/sec TR max michael: 212.5 cm/sec TR max P.1 mmHg ECHO/Echo Complete Interpretation Summary Normal LV size. Left ventricular systolic function is normal. The left ventricular ejection fraction is 55 %. Mild to moderately dilated aortic root. Mild (1+) aortic valve insufficiency. Ordering Physician: Gloria Walsh Performed By: Martha Hutchinson RDCS
[2025-01-09 04:55] LABS: Magnesium 2.4 mg/dL (1.5-2.2)
[2025-01-09] MEDS: 0.9% Normal Saline (1000mL) 1,000 ML 100 ML IV (05:05)
[2025-01-09] MEDS: 0.9% Saline Lock 10 ML Syringe IV (05:05)
[2025-01-09 07:35] LABS: Hematocrit 39.5 % (37-47); Hemoglobin 13.2 g/dL (12.0-15.0); Immature Granulocytes Count 0.020 X10^3/uL (0.0-0.0); Mean Corp Hgb Conc 33.4 g/dL (32-36); Mean Corpuscular Volume 82.1 fL (81-99); Mean Platelet Vol. 8.4 fl (6.2-12.0); NRBC Flagged by Analyzer 0 % (0-5); Platelet Count 390 K/mm3 (150-450); RBC Distribution Width CV 13.2 % (11.6-14.6); RBC Distribution Width SD 39.9 fl (35.1-43.9); Red Blood Count 4.81 M/mm3 (4.2-5.4); White Blood Count 6.3 K/mm3 (4.4-11.0)
--- NOTE | 2025-01-09 08:00 | EKG12_ITS ---
Test Reason : Blood Pressure : */* mmHG Vent. Rate : 65 BPM Atrial Rate : 65 BPM P-R Int : 190 ms QRS Dur : 96 ms QT Int : 418 ms P-R-T Axes : 33 7 9 degrees QTcB Int : 434 ms Sinus rhythm with occasional Premature ventricular complexes Otherwise normal ECG When compared with ECG of 09-Jan-2025 01:23, MANUAL COMPARISON REQUIRED DATA IS UNCONFIRMED Confirmed by ALONDRA POLK, SAMRA ([id number]), editorial assistant DEX FITZPATRICK ([id number]) on 01/10/2025 7:18:13 AM Referred By: Confirmed By: SAMRA CANTU MD
[2025-01-09 08:07] LABS: AST(SGOT) 25 U/L (<=31); Alanine Aminotransfer ALT/SGPT 26 U/L (<=34); Albumin, Serum 4.1 g/dL (3.5-5.0); Alkaline Phosphatase 90 U/L (35-104); Anion Gap 11 (5-15); BUN 10 mg/dL (4-19); BUN/Creat Ratio 13.8 RATIO (10-20); Calcium,Total 8.7 mg/dL (7.6-11.0); Carbon Dioxide 23.3 mmol/L (21.0-32.0); Chloride 102 mmol/L (98-108); Estimated Creatinine Clearance 154.38 ml/min (50-250); Globulin 2.6 g/dL (2.2-4.2); Glucose 121 mg/dL (70-99); Potassium 4.1 mmol/L (3.3-5.1)
--- NOTE | 2025-01-09 17:32 | DS.PCM_ITS ---
Providers Date of Admission: 01/09/25 Date of Discharge: 01/09/25 Primary Care Physician: Dr. Leonard Chanel MD Reason For Visit: SYMPTOMATIC BRADYCARDIA, ? BB INDUCED BLOCK Diagnosis Discharge Diagnosis (1) Mobitz type 2 second degree heart block: Status: Acute Code(s): I44.1 - Atrioventricular block, second degree (2) Bradycardia with 31-40 beats per minute: Status: Acute Code(s): R00.1 - Bradycardia, unspecified Medications at Discharge Home Medications multivitamin 1 cap PO QDAY 07/05/17 lactobacillus combination no.8 3 billion cell capsule (Adult Probiotic) 3,000 mmu cells PO DAILY PRN probiotic 05/08/19 cholecalciferol (vitamin D3) 10 mcg (400 unit) capsule 10 mcg PO DAILY 09/16/23 fluticasone propionate 50 mcg/actuation nasal spray,suspension 2 spray intranasal DAILY PRN allergy symptoms 04/26/24 biotin 10,000 mcg capsule 1 cap PO DAILY 07/26/24 citalopram 20 mg tablet See Rx Instructions .Route .COMPLEX #90 tabs 09/19/24 magnesium glycinate mg PO QDAY 11/29/24 amlodipine 10 mg tablet (Norvasc) 10 mg PO DAILY #30 tabs 01/09/25 Hospital Course Operations None Procedures 2-D Echocardiogram Summary of Care Provided Minutes Spent on Discharge: 38 Hospital Course: Patient is a 49-year-old female with a past medical history as outlined was admitted through the ED on 01/09/2025 with a complaint of symptomatic bradycardia. She says she noted per her watch that she was bradycardic and had been receiving alerts from her smart watch and also complained of palpitations and mild epigastric discomfort. She was on amlodipine and labetalol and the medication had no change recently. Dulce made better watch was supposedly consistent with a second-degree heart block. She denied any chest pain or shortness of breath. She therefore came into the ED. Patient says she had been on labetalol for years. When she came into the ED her heart rate was in the 70s and she felt much better. Vitals were essentially unremarkable apart from blood pressure elevated at 171/89. EKG showed no acute ST changes and showed normal sinus rhythm and chest x-ray showed mild cardiomegaly but no other acute cardiopulmonary findings. She was admitted to be managed for symptomatic bradycardia which was thought to be likely beta-lida induced. Labetalol was discontinued. Patient remained in normal sinus rhythm with a normal heart rate throughout admission. She did have 2D echo which showed normal left ventricular size and left ventricular systolic function with EF of 55% and mild to moderately dilated aortic root. She remained stable and as stated the labetalol was discontinued on admission. She was discharged with 30-day event monitor. She is to follow-up with her primary care doctor within 1 to 2 weeks and she was also referred to [facility] per her request for evaluation for this episodic palpitations. 30-day event monitor to be sent to her PCP and since she will follow-up with cardiology also will likely be evaluated by cardiology. Patient seen and examined prior to discharge. She had no active complaints. Her significant other was by the bedside. She had an uneventful night and review of systems otherwise negative. Labs and vitals reviewed. Home medication reviewed and reconciled. Physical Exam Const alert, oriented x3 and no apparent distress Constitutional Narrative: Class III obesity General Appearance: cooperative and comfortable HEENT normocephalic, head/scalp atraumatic, hearing grossly normal bilaterally, moist oral mucous membranes and oropharynx normal Mouth: oral and palatal mucosa normal Eyes EOMs intact bilaterally and conjunctivae normal Neck supple Resp normal respiratory effort, no retractions, no use of accessory muscles and clear to auscultation bilaterally Cardio regular rate, regular rhythm, S1 normal heart sound, S2 normal heart sound and no murmurs GI normal to inspection, nondistended, normoactive bowel sounds and soft to palpation Extremity normal to inspection and full ROM Skin no rashes or lesions noted Neuro oriented x3, CN's II-XII intact bilaterally, moves all extremities, no focal motor deficits and no sensory deficits noted Sensorium / Orientation: awake and alert Motor Exam: strength 5/5 throughout Psych affect normal Weight / BMI Weight Weight: 322 lb 1.526 oz Body Mass Index (BMI) 45.1 ABG / Lab / Microbiology Data 01/09/25 07:18 01/09/25 07:18 Laboratory: Laboratory Results - last 24 hr 01/08/25 23:32: WBC Cancelled 01/08/25 23:32: WBC 8.0, Corrected WBC Cancelled, RBC Cancelled 01/08/25 23:32: RBC 4.93, Hgb Cancelled 01/08/25 23:32: Hgb 13.4, Hct Cancelled 01/08/25 23:32: Hct 40.9, MCV Cancelled 01/08/25 23:32: MCV 83.0, MCH Cancelled 01/08/25 23:32: MCH 27.2, MCHC Cancelled 01/08/25 23:32: MCHC 32.8, RDW Std Deviation Cancelled 01/08/25 23:32: RDW Std Deviation 40.4, RDW Coeff of Roberta Cancelled 01/08/25 23:32: RDW Coeff of Roberta 13.4, Plt Count Cancelled 01/08/25 23:32: Plt Count 433, MPV Cancelled 01/08/25 23:32: MPV 8.3, Immature Gran % (Auto) Cancelled 01/08/25 23:32: Immature Gran % (Auto) 0.400, Neut % (Auto) Cancelled 01/08/25 23:32: Neut % (Auto) 48.6, Lymph % (Auto) Cancelled 01/08/25 23:32: Lymph % (Auto) 39.0, Mineral % (Auto) Cancelled 01/08/25 23:32: Mineral % (Auto) 8.5, Eos % (Auto) Cancelled 01/08/25 23:32: Eos % (Auto) 2.4, Baso % (Auto) Cancelled 01/08/25 23:32: Baso % (Auto) 1.1 H, Absolute Neuts (auto) Cancelled 01/08/25 23:32: Absolute Neuts (auto) 3.9, Absolute Lymphs (auto) Cancelled 01/08/25 23:32: Absolute Lymphs (auto) 3.11, Total Counted Cancelled, Neutrophils % (Manual) Cancelled, Band Neutrophils % Cancelled, Lymphocytes % (Manual) Cancelled, Monocytes % (Manual) Cancelled, Eosinophils % (Manual) Cancelled, Basophils % (Manual) Cancelled, Metamyelocytes % Cancelled, Myelocytes % Cancelled, Promyelocytes % Cancelled, Blast Cells % Cancelled, Plasma Cell % (Manual) Cancelled, Other Cells % Cancelled, Nucleated RBC % Cancelled 01/08/25 23:32: Nucleated RBC % 0, Nucleated RBCs/100 WBC Cancelled, Differential Comment Cancelled, Diff Path Review Cancelled, Hypersegmented Neuts Cancelled, Atypical Lymphocytes Cancelled, Reactive Lymphocytes Cancelled, Smudge Cells Cancelled, Toxic Granulation Cancelled, Toxic Vacuolation Cancelled, Dohle Bodies Cancelled, Louie Rods Cancelled, Platelet Estimate Cancelled, Plt Morphology Comment Cancelled, RBC Morphology Cancelled 01/08/25 23:32: RBC Morphology Cancelled, Polychromasia Cancelled, Hypochromasia Cancelled, Basophilic Stippling Cancelled, Anisocytosis Cancelled, Microcytosis Cancelled, Macrocytosis Cancelled, Spherocytes Cancelled, Sickle Cells Cancelled, Target Cells Cancelled, Tear Drop Cells Cancelled, Ovalocytes Cancelled, Stomatocytes Cancelled, [place] Bodies Cancelled, Luis Cells Cancelled, Bite Cells Cancelled, Crenated Cell Cancelled, Acanthocytes (Spur) Cancelled, Rouleaux Cancelled, Schistocytes Cancelled, Sodium 137, Potassium 3.9, Chloride 102, Carbon Dioxide 23.2, Anion Gap 12, BUN 13, Creatinine 0.79, Estim Creat Clear Calc 138.99, Est GFR (MDRD) Non-Af 92, BUN/Creatinine Ratio 16.1, Glucose 103 H, Calcium 8.8, Troponin T High Sens 12 01/09/25 01:47: Troponin T Hi Sens 2 Hr 14 01/09/25 03:33: Magnesium 2.4 H, Troponin T Hi Sens 4Hr 13 01/09/25 06:04: POC Glucose 126 H 01/09/25 07:18: WBC 6.3, RBC 4.81, Hgb 13.2, Hct 39.5, MCV 82.1, MCH 27.4, MCHC 33.4, RDW Std Deviation 39.9, RDW Coeff of Roberta 13.2, Plt Count 390, MPV 8.4, Immature Gran % (Auto) 0.300, Neut % (Auto) 52.2, Lymph % (Auto) 36.3, Mineral % (Auto) 8.0, Eos % (Auto) 2.4, Baso % (Auto) 0.8, Absolute Neuts (auto) 3.3, Absolute Lymphs (auto) 2.27, Nucleated RBC % 0, Sodium 137, Potassium 4.1, Chloride 102, Carbon Dioxide 23.3, Anion Gap 11, BUN 10, Creatinine 0.71, Estim Creat Clear Calc 154.38, Est GFR (MDRD) Non-Af 105, BUN/Creatinine Ratio 13.8, G lucose 121 H, Calcium 8.7, Total Bilirubin 0.34, AST 25, ALT 26, Alkaline Phosphatase 90, Total Protein 6.7, Albumin 4.1, Globulin 2.6, Albumin/Globulin Ratio 1.6, TSH 2.650 01/09/25 11:06: POC Glucose 123 H 01/09/25 16:24: POC Glucose 95 Radiography Diagnostic Testing: Radiology Impression Chest X-Ray 01/08/25 23:45 IMPRESSION: Mild cardiomegaly. No acute pulmonary disease. Reading Location: [id number] Echocardiogram 01/09/25 04:35 Interpretation Summary Normal LV size. Left ventricular systolic function is normal. The left ventricular ejection fraction is 55 %. Mild to moderately dilated aortic root. Mild (1+) aortic valve insufficiency. Ordering Physician: Gloria Walsh Performed By: Martha Hutchinson RDCS D/C Instructions Discharge Activity: Return to Normal Activity Weight Bearing Status: Weight bearing as tolerated Call your doctor if you observe: Fever of 101 or Higher, Shortness of breath, Dizziness, Swelling in the ankles and Chest pain DC O2, CPAP, BIPAP Needs Home O2 Discharge instructions: No DC home with Oxygen: No Meaningful Use Info Meaningful Use Meaningful Use Diagnoses (Choose all that apply): None applicable Discharge Plan Admission Admit Date/Time: 01/09/25 03:12 Primary Reason for Your Visit: symptomatic bradycardia Attending Provider: Zena Montenegro Primary Care Provider: Leonard Chanel Consulting Providers: Gloria Walsh Instructions Patient Instructions: Understanding Bradycardia, ED Bradycardia Discharge Orders/Prescriptions Prescriptions: New amlodipine [Norvasc] 10 mg tablet 10 mg PO DAILY Qty: 30 2RF Continued multivitamin capsule 1 cap PO QDAY Adult Probiotic 3 billion cell capsule 3,000 mmu cells PO DAILY PRN (Reason: probiotic) Rx Instructions: administer with a meal fluticasone propionate 50 mcg/actuation spray,suspension 2 spray intranasal DAILY PRN (Reason: allergy symptoms) Patient Comments: Takes as needed. Last used about 1 month ago Rx Instructions: administer into each nostril cholecalciferol (vitamin D3) 10 mcg (400 unit) capsule 10 mcg PO DAILY biotin 10,000 mcg capsule 1 cap PO DAILY magnesium glycinate 100 mg magnesium capsule PO QDAY citalopram 20 mg tablet See Rx Instructions .ROUTE .COMPLEX Qty: 90 1RF Dose Instruction: TAKE 1 TABLET BY MOUTH EVERY DAY Rx Instructions: TAKE 1 TABLET BY MOUTH EVERY DAY Discontinued labetalol 200 mg tablet 400 mg PO BID Qty: 360 1RF amlodipine 5 mg tablet See Rx Instructions .ROUTE .COMPLEX Qty: 90 1RF Dose Instruction: 5 MG ORALLY DAILY Rx Instructions: 5 MG ORALLY DAILY Other Ambulatory Orders: 30 Day Event Recorder Preventi (Urgent) Timeframe: 1 Day Facility: [facility] - Location: Cardiovascular Services Ordered By: Dr. Zena Montenegro Referrals / Follow Up: Leonard Chanel MD [Primary Care Provider, Internal Medicine] - Within 1 Week Hansel Meyers MD [Med Staff - Active Staff, Cardiology] - Within 1 Month Referral Note: see to establish care for symptomatic bradycardia which has resolved, and episodic palpitations Disposition Disposition (needs filled in before D/C Order can be placed): Home, Self Care Charges/Coding Visit Charges Inpatient E&M: 99079 Disch Hosp >30min
== END 2025-01-09 18:45 | disposition home or self-care (01) ==
LOC: ED 01-09 02:16 → PCU 01-09 03:54
PROVIDERS: Admitting Provider Family Medicine; Emergency Provider Emergency Medicine; PCP Internal Medicine; Visit Provider Student in an Organized Health Care Education/Training Program
DX: I44.1 Atrioventricular block, second degree (principal); Z68.42 Body mass index [BMI] 45.0-49.9, adult; R73.03 Prediabetes; G47.33 Obstructive sleep apnea (adult) (pediatric); I77.819 Aortic ectasia, unspecified site; R10.13 Epigastric pain; E66.9 Obesity, unspecified; E78.2 Mixed hyperlipidemia; Z82.49 Family history of ischemic heart disease and other diseases of the circulatory system; I10 Essential (primary) hypertension; R00.1 Bradycardia, unspecified; K21.9 Gastro-esophageal reflux disease without esophagitis; I35.1 Nonrheumatic aortic (valve) insufficiency; I49.3 Ventricular premature depolarization; Z79.899 Other long term (current) drug therapy; F41.9 Anxiety disorder, unspecified; F32.A Depression, unspecified
CPT/HCPCS: 36415; 71045; 80048; 80053; 82962; 83735; 84443; 84484; 85025; 93005; 93306; 96360; 96361; 96372; 97802; 99221; 99285; Q9957; A4216; G0378

== ENCOUNTER → 2025-03-18 | Outpatient (CLI) | payer OTHER, SELFPAY ==
--- NOTE | 2025-03-18 16:18 | US_ITS ---
PROCEDURE: THYROID 03/18/2025 REASON FOR EXAM: MULITPLE THYROID NODULES TECHNIQUE: Procedure Code: USTHY Modality: US Procedure: THYROID COMPARISON: Prior study dated March 16, 2024 and March 10, 2023. FINDINGS: Right thyroid lobe size: 4.9 cm 1.7 cm 1.7 cm Left thyroid lobe size: 3.8 cm 1.3 cm 1.1 cm Isthmus: 0.1 cm Background parenchymal echotexture is homogeneous. Nodules: Once again, there are 4 small heterogeneous/hypoechoic nodules in the right lobe of the thyroid. The largest is in the upper pole and measures 1 cm x 0.8 cm x 0.7 cm. These are unchanged. Once again, 3 subcentimeter nodules are seen in the left lobe of the thyroid. These are unchanged. Stable bilateral multinodular goiter. US/Thyroid IMPRESSION: Stable examination. RECOMMENDATION: Based on most suspicious nodule. Nodule size = largest diameter Only evaluate nodule if =>5 mm. Growth > 20% in 2 dimensions = worsening. Follow up to 4 nodules. Recommend biopsy for no more than 2 nodules. Reading Location: [place] [id number]
== END | disposition home or self-care (01) ==
LOC: US 16:17
PROVIDERS: PCP Internal Medicine; Referring Provider Surgery; Visit Provider Surgery
DX: E04.2 Nontoxic multinodular goiter (principal)
CPT/HCPCS: 76536